=== PATIENT | female | born 1945 | race Two or more races ===

== ENCOUNTER 2020-06-14 03:53 | Emergency (ER) | payer OTHER ==
[~2020-06-14] VITALS: Ht 152.4 cm; Wt 68.2 kg
[~2020-06-14 03:53] MED LIST: NOCURR
[2020-06-14] MEDS ORDERED: SODIUM CHLORIDE 0.9% 1,000 ML IV ONE (04:15)
[2020-06-14] MEDS ORDERED: 0.9% SODIUM CHLORIDE 10 ML SYRINGE IVP PRN (04:15)
[2020-06-14] MEDS ORDERED: MORPHINE SULFATE 2 MG/ML SYRINGE IVP ONE (04:15)
[2020-06-14] MEDS ORDERED: MORPHINE SULFATE 2 MG/ML SYRINGE ONE (04:19)
[2020-06-14] MEDS ORDERED: ONDANSETRON HCL 4 MG/2 ML VIAL ONE (04:19)
[2020-06-14 04:30] LABS: GLUCOSE,POINT OF CARE 163 MG/DL (70-110)
[2020-06-14] MEDS ORDERED: ONDANSETRON HCL 4 MG/2 ML VIAL IVP ONE (04:30)
[2020-06-14 04:46] LABS: BASOPHILS % (AUTO) 0.8 % (0.0-2.0); EOSINOPHILS % (AUTO) 1.3 % (1.0-6.0); HEMATOCRIT 31.9 % (36-46); HEMOGLOBIN 10.4 g/dL (12.0-16.0); LYMPHOCYTES # (AUTO) 1.5 K/uL (1.0-4.8); LYMPHOCYTES % (AUTO) 18.2 % (22.0-44.0); MEAN CORPUSCULAR HEMOGLOBIN 28.5 pg (26.0-34.0); MEAN CORPUSCULAR HGB CONC 32.6 G/dL (31.0-37.0); MEAN CORPUSCULAR VOLUME 88 fL (80-100); MONOCYTES # (AUTO) 0.6 K/uL (0.1-1.0); MONOCYTES % (AUTO) 6.8 % (2.0-9.0); NEUTROPHILS # (AUTO) 6.1 K/uL (1.8-7.7); NEUTROPHILS % (AUTO) 72.9 % (40.0-70.0); PLATELET COUNT (AUTO) 248 K/uL (150-450); RED BLOOD CELL COUNT(AUTO) 3.65 MIL/uL (4.00-5.20); RED CELL DISTRIBUTION WIDTH 13.3 % (11.5-14.5)
[2020-06-14 05:02] LABS: CALCIUM, TOTAL 8.9 mg/dL (8.8-10.5); CREATININE 1.32 mg/dL (0.60-1.30); POTASSIUM 4.9 mmol/L (3.5-5.1)
[2020-06-14 05:18] LABS: ALBUMIN 3.3 g/dL (3.4-5.0); BILIRUBIN,TOTAL 0.5 mg/dL (0.1-1.0); FREE T4 (FREE THYROXINE) 1.48 ng/dL (0.76-1.46); THYROID STIMULATING HORMONE 2.36 uIU/mL (0.36-3.74)
[2020-06-14 05:20] LABS: D-DIMER 0.71 mg/L FEU (0.00-0.50); INR 1.1 (0.9-1.1); PROTHROMBIN TIME 11.2 SEC (9.4-11.6)
[2020-06-14] MEDS ORDERED: FUROSEMIDE 40 MG/4 ML VIAL IVP ONE (06:30)
[2020-06-14] MEDS ORDERED: ASPIRIN 81 MG CHEWABLE TABLET PO ONE (06:30)
[2020-06-14] MEDS ORDERED: NITROGLYCERIN 2% (1 GM=INCH) PACKET TP ONE (06:30)
[2020-06-14 07:37] LABS: APPEARANCE,URINE CLOUDY (CLEAR); BILIRUBIN,URINE NEGATIVE (NEGATIVE); GLUCOSE, URINE (UA) NEGATIVE (NEGATIVE); KETONES,URINE TRACE mg/dL (NEGATIVE); LEUKOCYTE ESTERASE ,URINE MODERATE (NEGATIVE); NITRATE,URINE NEGATIVE (NEGATIVE); OCCULT BLOOD,URINE SMALL (NEGATIVE); PH,URINE 6.5 (5.0-8.0); PROTEIN,URINE SEE CONFIRM (NEGATIVE); UROBILINOGEN,URINE 0.2 mg/dL (<=1.0)
[2020-06-14 07:56] LABS: COVID AG,FIA SOURCE NASOPHARYNGEAL
[2020-06-14] MEDS ORDERED: LETR2.5 PO (08:08)
[2020-06-14] MEDS ORDERED: CAPT25TA3 PO (08:08)
[2020-06-14 08:26] LABS: BACTERIA,URINE Many /HPF (None Seen); WBC,URINE 26-50 /HPF (0-5)
[2020-06-14 08:27] LABS: SULFOSALICYLIC ACID,URINE 2+ (Negative)
[2020-06-14] MEDS ORDERED: CefTRIAXone 1 GM/DEXTROSE 50 ML IV ONE (08:45)
[2020-06-14 11:19] VITALS: BP 159/81
== END 2020-06-14 11:53 | disposition short-term general hospital (02) ==
LOC: EMS 03:54
DX: I50.9 Heart failure, unspecified (principal); I31.3 Pericardial effusion (noninflammatory); N39.0 Urinary tract infection, site not specified; E11.9 Type 2 diabetes mellitus without complications; Z20.822 Contact with and (suspected) exposure to COVID-19
CPT/HCPCS: 36415; 71045; 71250; 74176; 80053; 81001; 82550; 82962; 83605; 83880; 84439; 84443; 84484; 85025; 85379; 85610; 85730; 87040; 87077; 87086; 87186; 87426; 93005; 96361; 96365; 96375; 99291; J0696; J1940; J2270; J2405; J7030; 72192; 74150; 74177; 96366

== ENCOUNTER 2020-12-08 18:56 | Inpatient (IN) | payer MEDICARE, OTHER ==
[~2020-12-08] VITALS: Ht 154.9 cm; Wt 55.7 kg
[~2020-12-08 18:56] MED LIST changes: +CAPT25TA3 PO; +LETR2.5 PO
[2020-12-08 19:19] LABS: BASOPHILS % (AUTO) 0.8 % (0.0-2.0); EOSINOPHILS % (AUTO) 3.4 % (1.0-6.0); HEMATOCRIT 33.9 % (36-46); HEMOGLOBIN 11.2 g/dL (12.0-16.0); LYMPHOCYTES # (AUTO) 2.1 K/uL (1.0-4.8); LYMPHOCYTES % (AUTO) 27.5 % (22.0-44.0); MEAN CORPUSCULAR HEMOGLOBIN 28.4 pg (26.0-34.0); MEAN CORPUSCULAR HGB CONC 32.9 G/dL (31.0-37.0); MEAN CORPUSCULAR VOLUME 86 fL (80-100); MONOCYTES # (AUTO) 0.6 K/uL (0.1-1.0); MONOCYTES % (AUTO) 7.5 % (2.0-9.0); NEUTROPHILS # (AUTO) 4.7 K/uL (1.8-7.7); NEUTROPHILS % (AUTO) 60.8 % (40.0-70.0); PLATELET COUNT (AUTO) 258 K/uL (150-450); RED BLOOD CELL COUNT(AUTO) 3.94 MIL/uL (4.00-5.20); RED CELL DISTRIBUTION WIDTH 14.2 % (11.5-14.5)
[2020-12-08 19:26] LABS: CALCIUM, TOTAL 8.6 mg/dL (8.8-10.5); CREATININE 1.62 mg/dL (0.60-1.30); POTASSIUM 4.1 mmol/L (3.5-5.1)
[2020-12-08 19:32] LABS: ALBUMIN 3.5 g/dL (3.4-5.0); BILIRUBIN,TOTAL 0.3 mg/dL (0.1-1.0); TOTAL PROTEIN, SERUM 7.3 g/dL (6.4-8.2)
[2020-12-08] MEDS ORDERED: MORPHINE SULFATE 2 MG/ML SYRINGE IVP ONE (20:00)
[2020-12-08] MEDS ORDERED: NITROGLYCERIN 2% (1 GM=INCH) PACKET TP ONE (20:00)
[2020-12-08] MEDS ORDERED: ONDANSETRON HCL 4 MG/2 ML VIAL IVP ONE (20:00)
[2020-12-08] MEDS ORDERED: SODIUM CHLORIDE 0.9% 1,000 ML IV ONE (20:45)
[2020-12-08] MEDS ORDERED: 0.9% SODIUM CHLORIDE 10 ML SYRINGE IVP PRN (22:15)
[2020-12-08] MEDS ORDERED: ACETAMINOPHEN 325 MG TABLET PO PRN (22:15)
[2020-12-08] MEDS ORDERED: ONDANSETRON HCL 4 MG/2 ML VIAL IVP PRN (22:15)
[2020-12-08] MEDS ORDERED: SODIUM CHLORIDE 0.9% 100 ML ONE (23:34)
[2020-12-08] MEDS ORDERED: IOHEXOL 350 MG/ML 100 ML VIAL ONE (23:34)
[2020-12-08] MEDS ORDERED: ASPIRIN 325 MG TABLET PO ONE (23:45)
[2020-12-08] MEDS ORDERED: 0.9% SODIUM CHLORIDE 10 ML SYRINGE IVP ONE (23:59)
[2020-12-09 05:25] LABS: BASOPHILS % (AUTO) 0.7 % (0.0-2.0); EOSINOPHILS % (AUTO) 5.4 % (1.0-6.0); HEMATOCRIT 31.1 % (36-46); HEMOGLOBIN 10.4 g/dL (12.0-16.0); LYMPHOCYTES # (AUTO) 2.1 K/uL (1.0-4.8); LYMPHOCYTES % (AUTO) 30.7 % (22.0-44.0); MEAN CORPUSCULAR HEMOGLOBIN 28.8 pg (26.0-34.0); MEAN CORPUSCULAR HGB CONC 33.4 G/dL (31.0-37.0); MEAN CORPUSCULAR VOLUME 86 fL (80-100); MONOCYTES # (AUTO) 0.7 K/uL (0.1-1.0); MONOCYTES % (AUTO) 10.1 % (2.0-9.0); NEUTROPHILS # (AUTO) 3.7 K/uL (1.8-7.7); NEUTROPHILS % (AUTO) 53.1 % (40.0-70.0); PLATELET COUNT (AUTO) 226 K/uL (150-450); RED BLOOD CELL COUNT(AUTO) 3.61 MIL/uL (4.00-5.20); RED CELL DISTRIBUTION WIDTH 14.1 % (11.5-14.5)
[2020-12-09 05:32] LABS: COVID AG,FIA SOURCE NASOPHARYNGEAL
[2020-12-09 05:35] LABS: CALCIUM, TOTAL 7.7 mg/dL (8.8-10.5); CREATININE 1.53 mg/dL (0.60-1.30); POTASSIUM 4.1 mmol/L (3.5-5.1)
[2020-12-09 05:46] LABS: PROTHROMBIN TIME 10.9 SEC (9.4-11.6)
[2020-12-09 09:18] VITALS: BP 161/80
[2020-12-09] MEDS ORDERED: MAGNESIUM HYDROXIDE SUSPENSION 30 ML UDCUP PO PRN (10:15)
[2020-12-09] MEDS ORDERED: MORPHINE SULFATE 2 MG/ML SYRINGE IVP PRN (10:15)
[2020-12-09] MEDS ORDERED: IPRATROPIUM BROMIDE 0.5 MG/2.5 ML NEB SOLUTION NEB PRN (10:15)
[2020-12-09] MEDS ORDERED: ACETAMINOPHEN 325 MG TABLET PO PRN (10:15)
[2020-12-09] MEDS ORDERED: ONDANSETRON HCL 4 MG/2 ML VIAL IVP PRN (10:15)
[2020-12-09] MEDS ORDERED: ALBUTEROL SULFATE 2.5 MG/0.5 ML NEB SOLUTION NEB PRN (10:15)
[2020-12-09] MEDS ORDERED: SODIUM CHLORIDE 0.9% 1,000 ML IV SCH (10:15)
[2020-12-09] MEDS ORDERED: CAPTOPRIL 25 MG TABLET PO SCH (10:15)
[2020-12-09] MEDS ORDERED: DEXTROSE 50%-WATER 25 GM/50 ML SYRINGE IVP PRN (10:15)
[2020-12-09] MEDS ORDERED: HydrALAZINE HCL 20 MG/ML VIAL IVP PRN (10:30)
[2020-12-09 10:58] VITALS: BP 139/73
[2020-12-09] MEDS: LETROZOLE 2.5 MG TABLET PO SCH (11:38)
[2020-12-09] MEDS: INSULIN LISPRO 100 UNITS/ML SQ PRN ×2 (11:57→20:11)
[2020-12-09] MEDS: CARVEDILOL 6.25 MG TABLET PO SCH ×2 (13:42→20:11)
[2020-12-09] MEDS: ASPIRIN 81 MG CHEWABLE TABLET PO SCH (13:42)
[2020-12-09 13:59] LABS: GLUCOMETER DEV NAME(LOC) 5N.1C; GLUCOSE,POINT OF CARE 146 MG/DL (70-110)
[2020-12-09 15:10] VITALS: BP 130/58
[2020-12-09 19:10] VITALS: BP 143/71
[2020-12-09 23:05] VITALS: BP 133/67
[2020-12-10] VITALS (10 sets, daily range): BP systolic 122–148; BP diastolic 51–68
[2020-12-10 01:17] LABS: GLUCOMETER DEV NAME(LOC) 5S.2B; GLUCOSE,POINT OF CARE 185 MG/DL (70-110)
[2020-12-10 01:19] LABS: GLUCOMETER DEV NAME(LOC) 5N.1C; GLUCOSE,POINT OF CARE 128 MG/DL (70-110)
[2020-12-10 06:28] LABS: BASOPHILS % (AUTO) 0.8 % (0.0-2.0); HEMATOCRIT 31.5 % (36-46); HEMOGLOBIN 10.4 g/dL (12.0-16.0); HEMOGLOBIN A1C 7.1 % (3.8-5.6); LYMPHOCYTES # (AUTO) 1.8 K/uL (1.0-4.8); LYMPHOCYTES % (AUTO) 26.6 % (22.0-44.0); MEAN CORPUSCULAR HEMOGLOBIN 28.8 pg (26.0-34.0); MEAN CORPUSCULAR HGB CONC 33.1 G/dL (31.0-37.0); MEAN CORPUSCULAR VOLUME 87 fL (80-100); MONOCYTES # (AUTO) 0.5 K/uL (0.1-1.0); MONOCYTES % (AUTO) 7.8 % (2.0-9.0); NEUTROPHILS # (AUTO) 4.1 K/uL (1.8-7.7); NEUTROPHILS % (AUTO) 58.8 % (40.0-70.0); PLATELET COUNT (AUTO) 222 K/uL (150-450); RED BLOOD CELL COUNT(AUTO) 3.62 MIL/uL (4.00-5.20); RED CELL DISTRIBUTION WIDTH 14.2 % (11.5-14.5)
[2020-12-10 06:39] LABS: ALBUMIN 2.8 g/dL (3.4-5.0); BILIRUBIN,TOTAL 0.2 mg/dL (0.1-1.0); CREATININE 1.46 mg/dL (0.60-1.30); MAGNESIUM 1.9 mg/dL (1.80-2.40); PHOSPHORUS 4.5 mg/dL (2.5-4.9); POTASSIUM 5.2 mmol/L (3.5-5.1); TOTAL PROTEIN, SERUM 6.1 g/dL (6.4-8.2)
[2020-12-10 07:08] LABS: GLUCOMETER DEV NAME(LOC) 5S.2B; GLUCOSE,POINT OF CARE 126 MG/DL (70-110)
[2020-12-10] MEDS: LETROZOLE 2.5 MG TABLET PO SCH (08:28)
[2020-12-10] MEDS: CARVEDILOL 6.25 MG TABLET PO SCH ×2 (08:28→20:23)
[2020-12-10] MEDS: ASPIRIN 81 MG CHEWABLE TABLET PO SCH (08:30)
[2020-12-10] MEDS: INSULIN LISPRO 100 UNITS/ML SQ PRN ×2 (12:44→21:02)
[2020-12-10] MEDS: HEPARIN SODIUM,PORCINE 5,000 UNITS/ML VIAL SQ SCH ×2 (12:45→20:22)
[2020-12-10] MEDS: FUROSEMIDE 20 MG TABLET PO SCH ×2 (13:33→20:23)
[2020-12-10] MEDS: PANTOPRAZOLE SODIUM 40 MG DR TABLET PO SCH (13:33)
[2020-12-10] MEDS ORDERED: SODIUM BICARBONATE 50 MEQ/50 ML VIAL ONE (15:09)
[2020-12-10] MEDS ORDERED: LIDOCAINE/PF 1% 30 ML VIAL ONE (15:09)
[2020-12-10] MEDS ORDERED: IOHEXOL 300 MG/ML 50 ML VIAL ONE (15:09)
[2020-12-10] MEDS ORDERED: HEPARIN SODIUM 1000 UNITS/NS 1,000 ML ONE (15:10)
[2020-12-10] MEDS ORDERED: IOHEXOL 300 MG/ML 150 ML VIAL ONE (15:10)
[2020-12-10] MEDS ORDERED: IOHEXOL 300 MG/ML 100 ML VIAL ONE (15:10)
[2020-12-10] MEDS ORDERED: HEPARIN SODIUM 1000 UNITS/NS 1,000 ML IARTER ONE (16:00)
[2020-12-10] MEDS ORDERED: SODIUM CHLORIDE 0.9% 500 ML IV ONE (16:00)
[2020-12-10] MEDS ORDERED: LIDOCAINE 1% 30 ML/SOD BICARB 8.4% 4 ML SQ ONE (16:00)
[2020-12-10] MEDS ORDERED: IOHEXOL 300 MG/ML 150 ML VIAL IARTER ONE (16:00)
[2020-12-10] MEDS: HYDROCODONE/ACETAMINOPHEN 5-325 MG TABLET PO PRN (20:25)
[2020-12-10 23:16] LABS: GLUCOMETER DEV NAME(LOC) 5S.2B; GLUCOSE,POINT OF CARE 210 MG/DL (70-110)
[2020-12-10 23:16] LABS: GLUCOMETER DEV NAME(LOC) 5S.1; GLUCOSE,POINT OF CARE 196 MG/DL (70-110)
[2020-12-11] MEDS: HYDROCODONE/ACETAMINOPHEN 5-325 MG TABLET PO PRN (00:30)
[2020-12-11 00:50] VITALS: BP 116/58
[2020-12-11 04:23] VITALS: BP 133/61
[2020-12-11 07:20] VITALS: BP 140/61
[2020-12-11 07:51] LABS: GLUCOMETER DEV NAME(LOC) 5S.2B; GLUCOSE,POINT OF CARE 120 MG/DL (70-110)
[2020-12-11] MEDS: LETROZOLE 2.5 MG TABLET PO SCH (08:48)
[2020-12-11] MEDS: ASPIRIN 81 MG CHEWABLE TABLET PO SCH (08:48)
[2020-12-11] MEDS: HEPARIN SODIUM,PORCINE 5,000 UNITS/ML VIAL SQ SCH ×2 (08:49→20:52)
[2020-12-11] MEDS: CARVEDILOL 6.25 MG TABLET PO SCH ×2 (08:49→20:52)
[2020-12-11] MEDS: FUROSEMIDE 20 MG TABLET PO SCH ×2 (08:49→20:52)
[2020-12-11] MEDS: PANTOPRAZOLE SODIUM 40 MG DR TABLET PO SCH (08:49)
[2020-12-11] MEDS ORDERED: LISINOPRIL 10 MG TABLET PO SCH (09:00)
[2020-12-11 11:05] VITALS: BP 124/62
[2020-12-11] MEDS: INSULIN LISPRO 100 UNITS/ML SQ PRN ×2 (12:50→21:06)
[2020-12-11 13:26] LABS: CALCIUM, TOTAL 8.1 mg/dL (8.8-10.5); CREATININE 1.73 mg/dL (0.60-1.30); POTASSIUM 4.8 mmol/L (3.5-5.1)
[2020-12-11 15:50] VITALS: BP 132/60
[2020-12-11 19:20] VITALS: BP 135/63
[2020-12-12] VITALS (7 sets, daily range): BP systolic 123–143; BP diastolic 62–70
[2020-12-12 04:18] LABS: GLUCOMETER DEV NAME(LOC) 5S.1; GLUCOSE,POINT OF CARE 167 MG/DL (70-110)
[2020-12-12 04:18] LABS: GLUCOMETER DEV NAME(LOC) 5S.1; GLUCOSE,POINT OF CARE 93 MG/DL (70-110)
[2020-12-12 04:18] LABS: GLUCOMETER DEV NAME(LOC) 5S.1; GLUCOSE,POINT OF CARE 182 MG/DL (70-110)
[2020-12-12 06:49] LABS: GLUCOMETER DEV NAME(LOC) 5S.1; GLUCOSE,POINT OF CARE 113 MG/DL (70-110)
[2020-12-12 07:55] LABS: CALCIUM, TOTAL 8.6 mg/dL (8.8-10.5); CREATININE 1.7 mg/dL (0.60-1.30); POTASSIUM 4.9 mmol/L (3.5-5.1)
[2020-12-12] MEDS: CARVEDILOL 6.25 MG TABLET PO SCH ×2 (08:06→21:08)
[2020-12-12] MEDS: PANTOPRAZOLE SODIUM 40 MG DR TABLET PO SCH (08:06)
[2020-12-12] MEDS: FUROSEMIDE 20 MG TABLET PO SCH ×3 (08:06→21:08)
[2020-12-12] MEDS: ASPIRIN 81 MG CHEWABLE TABLET PO SCH (08:06)
[2020-12-12] MEDS: LETROZOLE 2.5 MG TABLET PO SCH (08:06)
[2020-12-12] MEDS: HEPARIN SODIUM,PORCINE 5,000 UNITS/ML VIAL SQ SCH ×2 (08:07→21:09)
[2020-12-12] MEDS: INSULIN LISPRO 100 UNITS/ML SQ PRN ×3 (12:12→21:17)
[2020-12-12 13:42] LABS: GLUCOMETER DEV NAME(LOC) 5S.2B; GLUCOSE,POINT OF CARE 166 MG/DL (70-110)
[2020-12-13 00:55] LABS: GLUCOMETER DEV NAME(LOC) 5S.1; GLUCOSE,POINT OF CARE 195 MG/DL (70-110)
[2020-12-13 00:55] LABS: GLUCOMETER DEV NAME(LOC) 5S.1; GLUCOSE,POINT OF CARE 154 MG/DL (70-110)
[2020-12-13 04:35] VITALS: BP 133/69
[2020-12-13 08:30] VITALS: BP 137/58
[2020-12-13] MEDS: ASPIRIN 81 MG CHEWABLE TABLET PO SCH (09:20)
[2020-12-13] MEDS: LETROZOLE 2.5 MG TABLET PO SCH (09:23)
[2020-12-13] MEDS: FUROSEMIDE 20 MG TABLET PO SCH (09:23)
[2020-12-13] MEDS: CARVEDILOL 6.25 MG TABLET PO SCH (09:23)
[2020-12-13] MEDS: PANTOPRAZOLE SODIUM 40 MG DR TABLET PO SCH (09:23)
[2020-12-13] MEDS: HEPARIN SODIUM,PORCINE 5,000 UNITS/ML VIAL SQ SCH (09:24)
[2020-12-13] MEDS: INSULIN LISPRO 100 UNITS/ML SQ PRN (11:16)
[2020-12-13] MEDS ORDERED: CARV3 PO (11:42)
[2020-12-13] MEDS ORDERED: FURO20 PO (11:42)
[2020-12-13] MEDS ORDERED: ASPI-1450 PO (11:42)
[2020-12-13 12:29] VITALS: BP 120/59
[2020-12-13 13:35] VITALS: BP 135/57
[2020-12-13 22:28] LABS: GLUCOMETER DEV NAME(LOC) 5S.2B; GLUCOSE,POINT OF CARE 136 MG/DL (70-110)
[2020-12-14 06:45] LABS: GLUCOMETER DEV NAME(LOC) 5S.1; GLUCOSE,POINT OF CARE 193 MG/DL (70-110)
== END 2020-12-13 13:50 | disposition home or self-care (01) | DRG 286 ==
LOC: EMS 19:23 → 5S 12-09 06:40
PROVIDERS: ADMIT Internal Medicine; ATTEND Internal Medicine
PROC: 4A023N7 Measurement of Cardiac Sampling and Pressure, Left Heart, Percutaneous Approach (ICD-10-PCS; principal; 2020-12-10)
PROC: B2111ZZ Fluoroscopy of Multiple Coronary Arteries using Low Osmolar Contrast (ICD-10-PCS; 2020-12-10)
DX: R07.9 Chest pain, unspecified (principal); I50.21 Acute systolic (congestive) heart failure; I13.0 Hypertensive heart and chronic kidney disease with heart failure and stage 1 through stage 4 chronic kidney disease, or unspecified chronic kidney disease; N17.9 Acute kidney failure, unspecified; J91.8 Pleural effusion in other conditions classified elsewhere; I42.0 Dilated cardiomyopathy; I50.20 Unspecified systolic (congestive) heart failure; E83.51 Hypocalcemia; E11.65 Type 2 diabetes mellitus with hyperglycemia; E11.22 Type 2 diabetes mellitus with diabetic chronic kidney disease; E04.9 Nontoxic goiter, unspecified; I44.7 Left bundle-branch block, unspecified; D64.9 Anemia, unspecified; Z20.822 Contact with and (suspected) exposure to COVID-19; M19.90 Unspecified osteoarthritis, unspecified site; N18.30 Chronic kidney disease, stage 3 unspecified; Z85.3 Personal history of malignant neoplasm of breast; Z86.11 Personal history of tuberculosis; Z90.13 Acquired absence of bilateral breasts and nipples; Z90.49 Acquired absence of other specified parts of digestive tract; Z79.899 Other long term (current) drug therapy
CPT/HCPCS: 70450; 71045; 71260; 72193; 74160; 80048; 80053; 82962; 83036; 83735; 83880; 84100; 84484; 85025; 85610; 85730; 93005; 93306; 97161; 99291; J1644; J2270; J2405; J3490; J7030; J7050; Q9967; 36415-L1; 36415-TC

== ENCOUNTER 2021-03-04 20:46 | Emergency (ER) | payer MEDICARE, OTHER ==
[~2021-03-04] VITALS: Ht 154.9 cm; Wt 54.5 kg
[~2021-03-04 20:46] MED LIST changes: +ASPI-1450 PO; -CAPT25TA3 PO; +CARV3 PO; +FURO20 PO; -NOCURR
[2021-03-04 21:09] LABS: BASOPHILS % (AUTO) 0.5 % (0.0-2.0); HEMATOCRIT 32.1 % (36-46); HEMOGLOBIN 10.9 g/dL (12.0-16.0); LYMPHOCYTES # (AUTO) 2.2 K/uL (1.0-4.8); LYMPHOCYTES % (AUTO) 39.4 % (22.0-44.0); MEAN CORPUSCULAR HEMOGLOBIN 28.9 pg (26.0-34.0); MEAN CORPUSCULAR VOLUME 85 fL (80-100); MONOCYTES # (AUTO) 0.6 K/uL (0.1-1.0); MONOCYTES % (AUTO) 10.7 % (2.0-9.0); NEUTROPHILS # (AUTO) 2.6 K/uL (1.8-7.7); NEUTROPHILS % (AUTO) 47.4 % (40.0-70.0); PLATELET COUNT (AUTO) 248 K/uL (150-450); RED BLOOD CELL COUNT(AUTO) 3.77 MIL/uL (4.00-5.20); RED CELL DISTRIBUTION WIDTH 14.5 % (11.5-14.5)
[2021-03-04 21:14] LABS: COVID AG,FIA SOURCE NASOPHARYNGEAL
[2021-03-04 21:19] LABS: CALCIUM, TOTAL 8.4 mg/dL (8.8-10.5); CREATININE 1.89 mg/dL (0.60-1.30); POTASSIUM 4.1 mmol/L (3.5-5.1)
[2021-03-04 21:23] LABS: ALBUMIN 3.4 g/dL (3.4-5.0); BILIRUBIN,TOTAL 0.3 mg/dL (0.1-1.0); TOTAL PROTEIN, SERUM 7.3 g/dL (6.4-8.2)
[2021-03-04 21:58] VITALS: BP 148/78
== END 2021-03-04 21:59 | disposition home or self-care (01) ==
LOC: EMS 20:46
DX: R07.89 Other chest pain (principal); E11.9 Type 2 diabetes mellitus without complications; Z20.822 Contact with and (suspected) exposure to COVID-19
CPT/HCPCS: 71045; 80053; 84484; 85025; 93005; 99285; 36415-L1; 36415-TC

== ENCOUNTER → 2021-10-03 | Outpatient (CLI) | payer MEDICARE, OTHER | END | disposition home or self-care (01) | LOC: RADPV 12:49 | PROVIDERS: ATTEND Internal Medicine Cardiovascular Disease | DX: I08.3 Combined rheumatic disorders of mitral, aortic and tricuspid valves (principal); I50.9 Heart failure, unspecified; I27.20 Pulmonary hypertension, unspecified | CPT/HCPCS: 93306 ==

== ENCOUNTER 2022-03-11 11:01 | Inpatient (IN) | payer MEDICARE, OTHER ==
[~2022-03-11] VITALS: Ht 157.5 cm; Wt 55.5 kg
[~2022-03-11 11:01] MED LIST changes: +FOLI-130 PO
[2022-03-11 12:26] LABS: BASOPHILS % (AUTO) 0.7 % (0.0-2.0); EOSINOPHILS % (AUTO) 0.8 % (1.0-6.0); HEMATOCRIT 37.1 % (36-46); HEMOGLOBIN 11.7 g/dL (12.0-16.0); MEAN CORPUSCULAR HEMOGLOBIN 24.2 pg (26.0-34.0); MEAN CORPUSCULAR HGB CONC 31.4 G/dL (31.0-37.0); MEAN CORPUSCULAR VOLUME 77 fL (80-100); MONOCYTES # (AUTO) 0.5 K/uL (0.1-1.0); MONOCYTES % (AUTO) 7.4 % (2.0-9.0); NEUTROPHILS # (AUTO) 4.6 K/uL (1.8-7.7); NEUTROPHILS % (AUTO) 74.1 % (40.0-70.0); PLATELET COUNT (AUTO) 224 K/uL (150-450); RED BLOOD CELL COUNT(AUTO) 4.81 MIL/uL (4.00-5.20); RED CELL DISTRIBUTION WIDTH 18.5 % (11.5-14.5)
[2022-03-11 12:32] LABS: CALCIUM, TOTAL 8.8 mg/dL (8.8-10.5); CREATININE 1.32 mg/dL (0.60-1.30); POTASSIUM 4.3 mmol/L (3.5-5.1)
[2022-03-11 12:39] LABS: ALBUMIN 3.2 g/dL (3.4-5.0); BILIRUBIN,TOTAL 0.6 mg/dL (0.1-1.0); INR 1.1 (0.9-1.1); PROTHROMBIN TIME 11.3 SEC (9.4-11.6); TOTAL PROTEIN, SERUM 7.6 g/dL (6.4-8.2)
[2022-03-11 13:05] LABS: APPEARANCE,URINE HAZY (CLEAR); BILIRUBIN,URINE NEGATIVE (NEGATIVE); GLUCOSE, URINE (UA) 70-100 mg/dL (NEGATIVE); LEUKOCYTE ESTERASE ,URINE SMALL (NEGATIVE); NITRATE,URINE NEGATIVE (NEGATIVE); OCCULT BLOOD,URINE SMALL (NEGATIVE); PROTEIN,URINE 300-600,SEE CONFIRM mg/dL (NEGATIVE); SPECIFIC GRAVITIY, URINE 1.021 (1.003-1.030); UROBILINOGEN,URINE <=1.0 mg/dL (<=1.0)
[2022-03-11 13:19] LABS: BACTERIA,URINE Few /HPF (None Seen); SULFOSALICYLIC ACID,URINE 4+ (Negative); YEAST,URINE Few /HPF (None Seen)
[2022-03-11] MEDS ORDERED: FUROSEMIDE 40 MG/4 ML VIAL IVP ONE (13:30)
[2022-03-11 14:10] LABS: COVID AG,FIA SOURCE NASAL SWAB
[2022-03-11] MEDS ORDERED: BISACODYL 10 MG RECTAL RECTAL SUPPOSITORY PR PRN (15:45)
[2022-03-11] MEDS ORDERED: HYDROCODONE/ACETAMINOPHEN 5-325 MG TABLET PO PRN (15:45)
[2022-03-11] MEDS ORDERED: ZOLPIDEM TARTRATE 5 MG TABLET PO PRN (15:45)
[2022-03-11] MEDS ORDERED: MAGNESIUM HYDROXIDE SUSPENSION 30 ML UDCUP PO PRN (15:45)
[2022-03-11] MEDS ORDERED: ONDANSETRON HCL 4 MG/2 ML VIAL IVP PRN (15:45)
[2022-03-11] MEDS: HEPARIN SODIUM,PORCINE 5,000 UNITS/ML VIAL SQ SCH (16:00)
[2022-03-11 16:27] VITALS: BP 140/79
[2022-03-11] MEDS ORDERED: PNEUMOCOCCAL VACCINE POLYVALENT 0.5 ML VIAL [PPSV23] IM. ONE (18:00)
[2022-03-11] MEDS ORDERED: INFLUENZA VIRUS VACCINE QVS 2022-23 (6MO+)/PF 60 MCG/0.5 ML SYRINGE IM. ONE (18:00)
[2022-03-11] MEDS: CARVEDILOL 3.125 MG TABLET PO SCH (20:04)
[2022-03-11] MEDS: DOCUSATE SODIUM 100 MG CAPSULE PO SCH (20:05)
[2022-03-11] MEDS: FUROSEMIDE 20 MG/2 ML VIAL IVP SCH (20:07)
[2022-03-11 20:08] VITALS: BP 140/86
[2022-03-11 20:21] LABS: GLUCOMETER DEV NAME(LOC) 5N.1C; GLUCOSE,POINT OF CARE 222 MG/DL (70-110)
[2022-03-12 00:05] VITALS: BP 131/73
[2022-03-12] MEDS: HEPARIN SODIUM,PORCINE 5,000 UNITS/ML VIAL SQ SCH ×3 (00:55→16:41)
[2022-03-12 05:08] VITALS: BP 121/79
[2022-03-12 06:03] LABS: EOSINOPHILS % (AUTO) 2.1 % (1.0-6.0); HEMOGLOBIN 10.4 g/dL (12.0-16.0); LYMPHOCYTES # (AUTO) 1.2 K/uL (1.0-4.8); LYMPHOCYTES % (AUTO) 24.5 % (22.0-44.0); MEAN CORPUSCULAR HEMOGLOBIN 24.2 pg (26.0-34.0); MEAN CORPUSCULAR HGB CONC 31.6 G/dL (31.0-37.0); MEAN CORPUSCULAR VOLUME 77 fL (80-100); MONOCYTES # (AUTO) 0.4 K/uL (0.1-1.0); MONOCYTES % (AUTO) 9.2 % (2.0-9.0); NEUTROPHILS # (AUTO) 3.1 K/uL (1.8-7.7); NEUTROPHILS % (AUTO) 63.2 % (40.0-70.0); PLATELET COUNT (AUTO) 191 K/uL (150-450); RED BLOOD CELL COUNT(AUTO) 4.32 MIL/uL (4.00-5.20); RED CELL DISTRIBUTION WIDTH 18.2 % (11.5-14.5)
[2022-03-12 06:19] LABS: CALCIUM, TOTAL 8.3 mg/dL (8.8-10.5); CHOL/HDL RATIO 3.5 (3.9-5.7); CREATININE 1.49 mg/dL (0.60-1.30); POTASSIUM 4.6 mmol/L (3.5-5.1)
[2022-03-12 07:23] VITALS: BP 131/71
[2022-03-12] MEDS: FUROSEMIDE 20 MG/2 ML VIAL IVP SCH (08:53)
[2022-03-12] MEDS: PANTOPRAZOLE SODIUM 40 MG DR TABLET PO SCH (08:53)
[2022-03-12] MEDS: ASPIRIN 81 MG CHEWABLE TABLET PO SCH (08:53)
[2022-03-12] MEDS: CARVEDILOL 3.125 MG TABLET PO SCH ×2 (08:53→20:31)
[2022-03-12] MEDS: DOCUSATE SODIUM 100 MG CAPSULE PO SCH ×2 (08:53→20:31)
[2022-03-12 10:45] VITALS: BP 120/77
[2022-03-12 15:18] VITALS: BP 126/76
[2022-03-12 20:06] LABS: GLUCOMETER DEV NAME(LOC) 5S.2B; GLUCOSE,POINT OF CARE 201 MG/DL (70-110)
[2022-03-12 20:07] LABS: GLUCOMETER DEV NAME(LOC) 5S.2B; GLUCOSE,POINT OF CARE 235 MG/DL (70-110)
[2022-03-12 20:11] VITALS: BP 125/76
[2022-03-12 22:31] LABS: GLUCOMETER DEV NAME(LOC) 5S.1B; GLUCOSE,POINT OF CARE 274 MG/DL (70-110)
[2022-03-12] MEDS: ACETAMINOPHEN 325 MG TABLET PO PRN (23:04)
[2022-03-13 00:11] VITALS: BP 117/70
[2022-03-13] MEDS: HEPARIN SODIUM,PORCINE 5,000 UNITS/ML VIAL SQ SCH ×3 (00:13→15:49)
[2022-03-13 04:52] VITALS: BP 126/65
[2022-03-13 06:43] LABS: BASOPHILS % (AUTO) 0.9 % (0.0-2.0); EOSINOPHILS % (AUTO) 2.3 % (1.0-6.0); HEMOGLOBIN 10.8 g/dL (12.0-16.0); LYMPHOCYTES # (AUTO) 1.3 K/uL (1.0-4.8); MEAN CORPUSCULAR HEMOGLOBIN 24.5 pg (26.0-34.0); MEAN CORPUSCULAR HGB CONC 31.6 G/dL (31.0-37.0); MEAN CORPUSCULAR VOLUME 77 fL (80-100); MONOCYTES # (AUTO) 0.5 K/uL (0.1-1.0); MONOCYTES % (AUTO) 9.7 % (2.0-9.0); NEUTROPHILS # (AUTO) 2.8 K/uL (1.8-7.7); NEUTROPHILS % (AUTO) 59.1 % (40.0-70.0); PLATELET COUNT (AUTO) 197 K/uL (150-450); RED CELL DISTRIBUTION WIDTH 18.6 % (11.5-14.5)
[2022-03-13 06:57] LABS: CALCIUM, TOTAL 8.5 mg/dL (8.8-10.5); CREATININE 1.96 mg/dL (0.60-1.30)
[2022-03-13 07:59] VITALS: BP 131/95
[2022-03-13] MEDS ORDERED: FUROSEMIDE 20 MG/2 ML VIAL IVP SCH (08:00)
[2022-03-13] MEDS: ASPIRIN 81 MG CHEWABLE TABLET PO SCH (08:26)
[2022-03-13] MEDS: CARVEDILOL 3.125 MG TABLET PO SCH ×2 (08:27→21:02)
[2022-03-13] MEDS: DOCUSATE SODIUM 100 MG CAPSULE PO SCH ×2 (08:27→21:02)
[2022-03-13] MEDS: PANTOPRAZOLE SODIUM 40 MG DR TABLET PO SCH (08:27)
[2022-03-13 08:36] LABS: GLUCOMETER DEV NAME(LOC) 5S.2B; GLUCOSE,POINT OF CARE 168 MG/DL (70-110)
[2022-03-13 11:04] VITALS: BP 123/71
[2022-03-13] MEDS ORDERED: DEXTROSE 50%-WATER 25 GM/50 ML SYRINGE IVP PRN (11:45)
[2022-03-13] MEDS: INSULIN LISPRO 100 UNITS/ML SQ PRN ×2 (12:54→18:19)
[2022-03-13 15:03] VITALS: BP 119/54
[2022-03-13 18:36] LABS: GLUCOMETER DEV NAME(LOC) 5N.1C; GLUCOSE,POINT OF CARE 164 MG/DL (70-110)
[2022-03-13 20:00] VITALS: BP 122/62
[2022-03-13 21:21] LABS: GLUCOMETER DEV NAME(LOC) 5S.1B; GLUCOSE,POINT OF CARE 198 MG/DL (70-110)
[2022-03-14] VITALS: BP 120/68
[2022-03-14] MEDS: HEPARIN SODIUM,PORCINE 5,000 UNITS/ML VIAL SQ SCH ×3 (00:28→17:08)
[2022-03-14 04:00] VITALS: BP 132/72
[2022-03-14 06:29] LABS: BASOPHILS % (AUTO) 0.8 % (0.0-2.0); EOSINOPHILS % (AUTO) 2.1 % (1.0-6.0); HEMATOCRIT 35.4 % (36-46); LYMPHOCYTES # (AUTO) 1.5 K/uL (1.0-4.8); LYMPHOCYTES % (AUTO) 27.2 % (22.0-44.0); MEAN CORPUSCULAR HEMOGLOBIN 24.1 pg (26.0-34.0); MEAN CORPUSCULAR HGB CONC 31.1 G/dL (31.0-37.0); MEAN CORPUSCULAR VOLUME 77 fL (80-100); MONOCYTES # (AUTO) 0.4 K/uL (0.1-1.0); MONOCYTES % (AUTO) 7.8 % (2.0-9.0); NEUTROPHILS # (AUTO) 3.3 K/uL (1.8-7.7); NEUTROPHILS % (AUTO) 62.1 % (40.0-70.0); PLATELET COUNT (AUTO) 214 K/uL (150-450); RED BLOOD CELL COUNT(AUTO) 4.58 MIL/uL (4.00-5.20); RED CELL DISTRIBUTION WIDTH 18.6 % (11.5-14.5)
[2022-03-14 06:36] LABS: CALCIUM, TOTAL 8.1 mg/dL (8.8-10.5); CREATININE 1.97 mg/dL (0.60-1.30); POTASSIUM 4.9 mmol/L (3.5-5.1)
[2022-03-14 07:44] VITALS: BP 138/76
[2022-03-14 08:31] LABS: GLUCOMETER DEV NAME(LOC) 5S.2B; GLUCOSE,POINT OF CARE 117 MG/DL (70-110)
[2022-03-14] MEDS: CARVEDILOL 3.125 MG TABLET PO SCH ×2 (08:59→20:32)
[2022-03-14] MEDS: DOCUSATE SODIUM 100 MG CAPSULE PO SCH ×2 (09:00→20:31)
[2022-03-14] MEDS: ASPIRIN 81 MG CHEWABLE TABLET PO SCH (09:00)
[2022-03-14] MEDS: PANTOPRAZOLE SODIUM 40 MG DR TABLET PO SCH (09:00)
[2022-03-14 12:20] VITALS: BP 135/76
[2022-03-14 15:02] VITALS: BP 131/55
[2022-03-14 16:50] LABS: SPECIMENTYPE,BODY FLUID PLEURAL
[2022-03-14] MEDS: MORPHINE SULFATE 2 MG/ML SYRINGE IVP PRN ×2 (17:07→20:34)
[2022-03-14 18:14] LABS: APPEARANCE,SPUN,BODY FLUID CLEAR (CLEAR); APPEARANCE,UNSPUN,BODY FLUID HAZY (CLEAR)
[2022-03-14 18:15] LABS: BASOPHILS,BODY FLUID 0 %; COLOR,BODY FLUID LT YELLOW (LT YELLOW); EOSINOPHILS,BF (ANAL) 0 %; LYMPHOCYTES,BODY FLUID 76 %; MONOCYTES,BODY FLUID 3 %; NEUTROPHILS,BODY FLUID 21 %; TOTAL VOLUME,BODY FLUID 850 mL; WBC, BODY FLUID 16 /cu. mm.
[2022-03-14 20:05] VITALS: BP 128/72
[2022-03-14] MEDS: INSULIN LISPRO 100 UNITS/ML SQ PRN (20:33)
[2022-03-14 23:52] LABS: GLUCOMETER DEV NAME(LOC) 5N.1C; GLUCOSE,POINT OF CARE 241 MG/DL (70-110)
[2022-03-14 23:52] LABS: GLUCOMETER DEV NAME(LOC) 5N.1C; GLUCOSE,POINT OF CARE 102 MG/DL (70-110)
[2022-03-15] VITALS (7 sets, daily range): BP systolic 101–127; BP diastolic 49–74
[2022-03-15] MEDS: ACETAMINOPHEN 325 MG TABLET PO PRN ×2 (00:19→20:23)
[2022-03-15] MEDS: HEPARIN SODIUM,PORCINE 5,000 UNITS/ML VIAL SQ SCH ×4 (00:19→23:35)
[2022-03-15 06:01] LABS: BASOPHILS % (AUTO) 0.5 % (0.0-2.0); EOSINOPHILS % (AUTO) 1.9 % (1.0-6.0); HEMATOCRIT 32.3 % (36-46); HEMOGLOBIN 10.2 g/dL (12.0-16.0); LYMPHOCYTES # (AUTO) 1.2 K/uL (1.0-4.8); MEAN CORPUSCULAR HEMOGLOBIN 24.3 pg (26.0-34.0); MEAN CORPUSCULAR HGB CONC 31.7 G/dL (31.0-37.0); MEAN CORPUSCULAR VOLUME 77 fL (80-100); MONOCYTES # (AUTO) 0.6 K/uL (0.1-1.0); MONOCYTES % (AUTO) 9.7 % (2.0-9.0); NEUTROPHILS # (AUTO) 3.8 K/uL (1.8-7.7); NEUTROPHILS % (AUTO) 66.9 % (40.0-70.0); PLATELET COUNT (AUTO) 190 K/uL (150-450); RED BLOOD CELL COUNT(AUTO) 4.22 MIL/uL (4.00-5.20); RED CELL DISTRIBUTION WIDTH 18.7 % (11.5-14.5)
[2022-03-15 06:17] LABS: CREATININE 1.95 mg/dL (0.60-1.30); POTASSIUM 5.3 mmol/L (3.5-5.1)
[2022-03-15] MEDS: INSULIN LISPRO 100 UNITS/ML SQ PRN ×3 (06:47→20:23)
[2022-03-15] MEDS: ASPIRIN 81 MG CHEWABLE TABLET PO SCH (08:44)
[2022-03-15] MEDS: PANTOPRAZOLE SODIUM 40 MG DR TABLET PO SCH (08:44)
[2022-03-15] MEDS: CARVEDILOL 3.125 MG TABLET PO SCH ×2 (08:44→20:23)
[2022-03-15] MEDS: DOCUSATE SODIUM 100 MG CAPSULE PO SCH ×2 (08:44→20:23)
[2022-03-15 12:14] LABS: MAGNESIUM 1.9 mg/dL (1.80-2.40); PHOSPHORUS 4.8 mg/dL (2.5-4.9)
[2022-03-15] MEDS ORDERED: SODIUM POLYSTYRENE SULFONATE 15 GM/60 ML SUSPENSION BOTTLE PO ONE (13:45)
[2022-03-15] MEDS ORDERED: FUROSEMIDE 20 MG TABLET PO SCH (14:00)
[2022-03-15 22:02] LABS: GLUCOMETER DEV NAME(LOC) 5S.2B; GLUCOSE,POINT OF CARE 174 MG/DL (70-110)
[2022-03-15 22:02] LABS: GLUCOMETER DEV NAME(LOC) 5S.2B; GLUCOSE,POINT OF CARE 105 MG/DL (70-110)
[2022-03-15 22:02] LABS: GLUCOMETER DEV NAME(LOC) 5S.2B; GLUCOSE,POINT OF CARE 208 MG/DL (70-110)
[2022-03-16 03:40] VITALS: BP 105/50
[2022-03-16 06:15] LABS: EOSINOPHILS % (AUTO) 2.4 % (1.0-6.0); HEMATOCRIT 31.7 % (36-46); HEMOGLOBIN 10.1 g/dL (12.0-16.0); LYMPHOCYTES # (AUTO) 1.4 K/uL (1.0-4.8); LYMPHOCYTES % (AUTO) 25.6 % (22.0-44.0); MEAN CORPUSCULAR HEMOGLOBIN 24.2 pg (26.0-34.0); MEAN CORPUSCULAR HGB CONC 31.8 G/dL (31.0-37.0); MEAN CORPUSCULAR VOLUME 76 fL (80-100); MONOCYTES # (AUTO) 0.6 K/uL (0.1-1.0); MONOCYTES % (AUTO) 11.3 % (2.0-9.0); NEUTROPHILS # (AUTO) 3.2 K/uL (1.8-7.7); NEUTROPHILS % (AUTO) 59.7 % (40.0-70.0); PLATELET COUNT (AUTO) 193 K/uL (150-450); RED BLOOD CELL COUNT(AUTO) 4.15 MIL/uL (4.00-5.20); RED CELL DISTRIBUTION WIDTH 18.4 % (11.5-14.5)
[2022-03-16 06:24] LABS: CREATININE 1.94 mg/dL (0.60-1.30); POTASSIUM 5.4 mmol/L (3.5-5.1)
[2022-03-16 07:26] VITALS: BP 129/67
[2022-03-16] MEDS ORDERED: CARV3 PO (08:47)
[2022-03-16] MEDS ORDERED: ASPI81 PO (08:47)
[2022-03-16] MEDS ORDERED: FURO20 PO (08:47)
[2022-03-16] MEDS ORDERED: SODIUM POLYSTYRENE SULFONATE 15 GM/60 ML SUSPENSION BOTTLE PO ONE ×2 (09:00→16:15)
[2022-03-16] MEDS: ASPIRIN 81 MG CHEWABLE TABLET PO SCH (09:16)
[2022-03-16] MEDS: PANTOPRAZOLE SODIUM 40 MG DR TABLET PO SCH (09:16)
[2022-03-16] MEDS: DOCUSATE SODIUM 100 MG CAPSULE PO SCH (09:16)
[2022-03-16] MEDS: HEPARIN SODIUM,PORCINE 5,000 UNITS/ML VIAL SQ SCH ×2 (09:17→15:37)
[2022-03-16] MEDS: CARVEDILOL 3.125 MG TABLET PO SCH (09:17)
[2022-03-16 11:49] VITALS: BP 129/69
[2022-03-16] MEDS: INSULIN LISPRO 100 UNITS/ML SQ PRN ×2 (11:56→17:28)
[2022-03-16 15:27] VITALS: BP 113/53
[2022-03-16 19:41] LABS: GLUCOMETER DEV NAME(LOC) 5S.1B; GLUCOSE,POINT OF CARE 219 MG/DL (70-110)
[2022-03-16 20:41] LABS: GLUCOMETER DEV NAME(LOC) 5S.2B; GLUCOSE,POINT OF CARE 147 MG/DL (70-110)
[2022-03-16 20:41] LABS: GLUCOMETER DEV NAME(LOC) 5S.2B; GLUCOSE,POINT OF CARE 115 MG/DL (70-110)
[2022-03-16 20:42] LABS: GLUCOMETER DEV NAME(LOC) 5S.2B; GLUCOSE,POINT OF CARE 196 MG/DL (70-110)
== END 2022-03-16 18:15 | disposition home or self-care (01) | DRG 291 ==
LOC: EMS 11:12 → 5S 15:37
PROVIDERS: ADMIT Internal Medicine; ATTEND Internal Medicine
PROC: 0W993ZZ Drainage of Right Pleural Cavity, Percutaneous Approach (ICD-10-PCS; 2022-03-12)
PROC: 0W9B3ZZ Drainage of Left Pleural Cavity, Percutaneous Approach (ICD-10-PCS; principal; 2022-03-14)
DX: I13.0 Hypertensive heart and chronic kidney disease with heart failure and stage 1 through stage 4 chronic kidney disease, or unspecified chronic kidney disease (principal); E43 Unspecified severe protein-calorie malnutrition; I50.43 Acute on chronic combined systolic (congestive) and diastolic (congestive) heart failure; J18.9 Pneumonia, unspecified organism; J91.8 Pleural effusion in other conditions classified elsewhere; N17.9 Acute kidney failure, unspecified; I42.9 Cardiomyopathy, unspecified; E11.65 Type 2 diabetes mellitus with hyperglycemia; D53.9 Nutritional anemia, unspecified; I34.0 Nonrheumatic mitral (valve) insufficiency; I82.461 Acute embolism and thrombosis of right calf muscular vein; N18.9 Chronic kidney disease, unspecified; Z20.822 Contact with and (suspected) exposure to COVID-19; E11.22 Type 2 diabetes mellitus with diabetic chronic kidney disease; E78.5 Hyperlipidemia, unspecified; E87.5 Hyperkalemia; Z90.13 Acquired absence of bilateral breasts and nipples; Z85.3 Personal history of malignant neoplasm of breast; Z79.4 Long term (current) use of insulin; Z79.82 Long term (current) use of aspirin; Z79.899 Other long term (current) drug therapy; Z68.22 Body mass index [BMI] 22.0-22.9, adult
CPT/HCPCS: 32555; 71045; 76604; 76942; 80048; 80053; 80061; 81001; 81002; 82465; 82550; 82945; 82962; 83036; 83615; 83735; 83880; 83986; 84100; 84132; 84157; 84484; 85025; 85610; 85730; 87015; 87075; 87101; 87205; 87206; 89051; 93005; 93306; 93970; 99285; G0378; J1644; J1940; J2270; 36415-L1; 36415-TC; 87070

== ENCOUNTER 2022-04-06 14:19 | Inpatient (IN) | payer MEDICARE, OTHER ==
[~2022-04-06] VITALS: Ht 152.4 cm; Wt 49.7 kg
[~2022-04-06 14:19] MED LIST changes: -ASPI-1450 PO; +ASPI81 PO
[2022-04-06 14:49] LABS: BASOPHILS % (AUTO) 0.6 % (0.0-2.0); EOSINOPHILS % (AUTO) 1.6 % (1.0-6.0); HEMATOCRIT 36.2 % (36-46); HEMOGLOBIN 11.1 g/dL (12.0-16.0); LYMPHOCYTES # (AUTO) 1.1 K/uL (1.0-4.8); LYMPHOCYTES % (AUTO) 17.4 % (22.0-44.0); MEAN CORPUSCULAR HEMOGLOBIN 23.2 pg (26.0-34.0); MEAN CORPUSCULAR HGB CONC 30.7 G/dL (31.0-37.0); MEAN CORPUSCULAR VOLUME 76 fL (80-100); MONOCYTES # (AUTO) 0.7 K/uL (0.1-1.0); MONOCYTES % (AUTO) 10.9 % (2.0-9.0); NEUTROPHILS # (AUTO) 4.3 K/uL (1.8-7.7); NEUTROPHILS % (AUTO) 69.5 % (40.0-70.0); PLATELET COUNT (AUTO) 278 K/uL (150-450); RED CELL DISTRIBUTION WIDTH 18.6 % (11.5-14.5)
[2022-04-06 14:59] LABS: ANION GAP 7 mmol/L (8-16); CALCIUM, TOTAL 8.2 mg/dL (8.8-10.5); CARBON DIOXIDE 27 mmol/L (22-29); CHLORIDE 99 mmol/L (98-107); CREATININE 1.59 mg/dL (0.60-1.30); GLOMERULAR FILTR. RATE CALC 31 mL/min (>60); GLUCOSE,RANDOM 348 mg/dL (70-110); POTASSIUM 4.8 mmol/L (3.5-5.1); SODIUM SERUM 133 mmol/L (136-145); UREA NITROGEN, BLOOD 25 mg/dL (7-18)
[2022-04-06 15:02] LABS: INR 1.1 (0.9-1.1); PROTHROMBIN TIME 11.6 SEC (9.4-11.6)
[2022-04-06 15:05] LABS: ALANINE AMINOTRANSFERASE 32 U/L (12-78); ALBUMIN 2.6 g/dL (3.4-5.0); ALKALINE PHOSPHATASE 151 U/L (46-116); ASPARTATE AMINOTRANSFERASE 25 U/L (15-37); BILIRUBIN,TOTAL 0.4 mg/dL (0.1-1.0); TOTAL PROTEIN, SERUM 6.8 g/dL (6.4-8.2)
[2022-04-06 15:28] LABS: B-TYPE NATRIURETIC PEPTIDE > 5000 pg/mL (0-100)
[2022-04-06] MEDS ORDERED: FUROSEMIDE 40 MG/4 ML VIAL IVP ONE (15:45)
[2022-04-06 16:53] LABS: COVID AG,FIA SOURCE NASAL SWAB
[2022-04-06] MEDS ORDERED: ACETAMINOPHEN 325 MG TABLET PO PRN (17:30)
[2022-04-06] MEDS ORDERED: DEXTROSE 50%-WATER 25 GM/50 ML SYRINGE IVP PRN (17:45)
[2022-04-06] MEDS: CARVEDILOL 6.25 MG TABLET PO SCH (22:37)
[2022-04-06] MEDS: DOCUSATE SODIUM 100 MG CAPSULE PO SCH (22:37)
[2022-04-06] MEDS: BUMETANIDE 0.25 MG/ML 4 ML VIAL IVP SCH (22:52)
[2022-04-07 06:18] LABS: CALCIUM, TOTAL 7.9 mg/dL (8.8-10.5); CREATININE 1.56 mg/dL (0.60-1.30); POTASSIUM 4.9 mmol/L (3.5-5.1)
[2022-04-07] MEDS: LOSARTAN POTASSIUM 25 MG TABLET PO SCH (08:50)
[2022-04-07] MEDS: FAMOTIDINE 20 MG TABLET PO SCH (08:51)
[2022-04-07] MEDS: ASPIRIN 81 MG CHEWABLE TABLET PO SCH (08:51)
[2022-04-07] MEDS: HEPARIN SODIUM,PORCINE 5,000 UNITS/ML VIAL SQ SCH ×3 (08:53→15:32)
[2022-04-07] MEDS: BUMETANIDE 0.25 MG/ML 4 ML VIAL IVP SCH ×2 (08:55→22:56)
[2022-04-07] MEDS: DOCUSATE SODIUM 100 MG CAPSULE PO SCH ×2 (08:56→20:25)
[2022-04-07] MEDS: CARVEDILOL 6.25 MG TABLET PO SCH ×2 (09:00→20:25)
[2022-04-07 16:32] VITALS: BP 147/93
[2022-04-07] MEDS: INSULIN LISPRO 100 UNITS/ML SQ PRN ×2 (17:05→21:17)
[2022-04-07 19:43] VITALS: BP 116/55
[2022-04-07] MEDS: CeFAZolin 1 GM/DEXTROSE 50 ML IV SCH (22:57)
[2022-04-08 00:06] LABS: GLUCOMETER DEV NAME(LOC) 5S.1B; GLUCOSE,POINT OF CARE 329 MG/DL (70-110)
[2022-04-08] MEDS: HEPARIN SODIUM,PORCINE 5,000 UNITS/ML VIAL SQ SCH ×3 (00:06→15:13)
[2022-04-08 00:16] VITALS: BP 120/57
[2022-04-08 05:29] VITALS: BP 118/65
[2022-04-08] MEDS: CeFAZolin 1 GM/DEXTROSE 50 ML IV SCH ×3 (06:37→21:30)
[2022-04-08 06:56] LABS: GLUCOMETER DEV NAME(LOC) 5S.1B; GLUCOSE,POINT OF CARE 102 MG/DL (70-110)
[2022-04-08 07:58] VITALS: BP 125/60
[2022-04-08] MEDS: BUMETANIDE 0.25 MG/ML 4 ML VIAL IVP SCH ×2 (08:21→20:36)
[2022-04-08] MEDS: DOCUSATE SODIUM 100 MG CAPSULE PO SCH ×2 (08:22→20:36)
[2022-04-08] MEDS: CARVEDILOL 6.25 MG TABLET PO SCH ×2 (08:22→20:36)
[2022-04-08] MEDS: ASPIRIN 81 MG CHEWABLE TABLET PO SCH (08:22)
[2022-04-08] MEDS: FAMOTIDINE 20 MG TABLET PO SCH (08:23)
[2022-04-08] MEDS: LOSARTAN POTASSIUM 25 MG TABLET PO SCH (08:23)
[2022-04-08] MEDS ORDERED: PNEUMOCOCCAL VACCINE POLYVALENT 0.5 ML VIAL [PPSV23] IM. ONE (11:15)
[2022-04-08] MEDS ORDERED: INFLUENZA VIRUS VACCINE QVS 2022-23 (6MO+)/PF 60 MCG/0.5 ML SYRINGE IM. ONE (11:15)
[2022-04-08 11:20] VITALS: BP 122/60
[2022-04-08 11:39] LABS: APPEARANCE,URINE CLEAR (CLEAR); BILIRUBIN,URINE NEGATIVE (NEGATIVE); GLUCOSE, URINE (UA) NEGATIVE (NEGATIVE); KETONES,URINE NEGATIVE (NEGATIVE); LEUKOCYTE ESTERASE ,URINE MODERATE (NEGATIVE); NITRATE,URINE NEGATIVE (NEGATIVE); OCCULT BLOOD,URINE LARGE (NEGATIVE); PH,URINE 6.5 (5.0-8.0); PROTEIN,URINE 30-70 mg/dL (NEGATIVE); UROBILINOGEN,URINE <=1.0 mg/dL (<=1.0)
[2022-04-08 11:48] LABS: BACTERIA,URINE Few /HPF (None Seen); RBC,URINE 26-50 /HPF (0-2); SQUAMOUS EPITHELIAL CELL,UR Few /LPF (None Seen)
[2022-04-08] MEDS: INSULIN LISPRO 100 UNITS/ML SQ PRN ×2 (12:25→17:19)
[2022-04-08 15:44] VITALS: BP 126/62
[2022-04-08] MEDS: GuaiFENesin/CODEINE [SUGAR FREE] 200-20MG/10 ML SYRUP UDCUP PO PRN (17:15)
[2022-04-08 20:00] VITALS: BP 99/43
[2022-04-09] VITALS (7 sets, daily range): BP systolic 106–132; BP diastolic 59–73
[2022-04-09] MEDS: HEPARIN SODIUM,PORCINE 5,000 UNITS/ML VIAL SQ SCH ×3 (00:01→15:19)
[2022-04-09] MEDS: CeFAZolin 1 GM/DEXTROSE 50 ML IV SCH ×3 (05:32→22:36)
[2022-04-09] MEDS: INSULIN LISPRO 100 UNITS/ML SQ PRN ×3 (06:04→17:40)
[2022-04-09 06:30] LABS: BASOPHILS % (AUTO) 1.1 % (0.0-2.0); EOSINOPHILS % (AUTO) 2.9 % (1.0-6.0); HEMATOCRIT 35.8 % (36-46); HEMOGLOBIN 11.3 g/dL (12.0-16.0); LYMPHOCYTES # (AUTO) 1.8 K/uL (1.0-4.8); MEAN CORPUSCULAR HEMOGLOBIN 23.6 pg (26.0-34.0); MEAN CORPUSCULAR HGB CONC 31.4 G/dL (31.0-37.0); MEAN CORPUSCULAR VOLUME 75 fL (80-100); MONOCYTES # (AUTO) 0.7 K/uL (0.1-1.0); NEUTROPHILS # (AUTO) 3.8 K/uL (1.8-7.7); PLATELET COUNT (AUTO) 308 K/uL (150-450); RED BLOOD CELL COUNT(AUTO) 4.78 MIL/uL (4.00-5.20); RED CELL DISTRIBUTION WIDTH 18.3 % (11.5-14.5)
[2022-04-09 06:56] LABS: GLUCOMETER DEV NAME(LOC) 5S.2B; GLUCOSE,POINT OF CARE 141 MG/DL (70-110)
[2022-04-09 06:56] LABS: GLUCOMETER DEV NAME(LOC) 5S.2B; GLUCOSE,POINT OF CARE 251 MG/DL (70-110)
[2022-04-09 06:56] LABS: GLUCOMETER DEV NAME(LOC) 5S.2B; GLUCOSE,POINT OF CARE 100 MG/DL (70-110)
[2022-04-09 07:08] LABS: ALBUMIN 2.1 g/dL (3.4-5.0); BILIRUBIN,TOTAL 0.2 mg/dL (0.1-1.0); CALCIUM, TOTAL 7.8 mg/dL (8.8-10.5); CREATININE 1.55 mg/dL (0.60-1.30); POTASSIUM 4.6 mmol/L (3.5-5.1); TOTAL PROTEIN, SERUM 5.8 g/dL (6.4-8.2)
[2022-04-09] MEDS: GuaiFENesin/CODEINE [SUGAR FREE] 200-20MG/10 ML SYRUP UDCUP PO PRN ×2 (08:59→15:30)
[2022-04-09] MEDS: BUMETANIDE 0.25 MG/ML 4 ML VIAL IVP SCH ×2 (09:01→20:42)
[2022-04-09] MEDS: ASPIRIN 81 MG CHEWABLE TABLET PO SCH (09:01)
[2022-04-09] MEDS: DOCUSATE SODIUM 100 MG CAPSULE PO SCH ×2 (09:02→20:40)
[2022-04-09] MEDS: CARVEDILOL 6.25 MG TABLET PO SCH ×2 (09:02→20:40)
[2022-04-09] MEDS: LOSARTAN POTASSIUM 25 MG TABLET PO SCH (09:02)
[2022-04-09] MEDS: FAMOTIDINE 20 MG TABLET PO SCH (09:02)
[2022-04-09 19:31] LABS: GLUCOMETER DEV NAME(LOC) 5S.1B; GLUCOSE,POINT OF CARE 154 MG/DL (70-110)
[2022-04-09 19:31] LABS: GLUCOMETER DEV NAME(LOC) 5S.1B; GLUCOSE,POINT OF CARE 174 MG/DL (70-110)
[2022-04-09 19:31] LABS: GLUCOMETER DEV NAME(LOC) 5S.1B; GLUCOSE,POINT OF CARE 222 MG/DL (70-110)
[2022-04-09] MEDS: ONDANSETRON HCL 4 MG/2 ML VIAL IVP PRN (20:39)
[2022-04-09] MEDS ORDERED: SODIUM CHLORIDE 0.9% 250 ML IV ONE (22:36)
[2022-04-10] MEDS: GuaiFENesin/CODEINE [SUGAR FREE] 200-20MG/10 ML SYRUP UDCUP PO PRN (00:06)
[2022-04-10] MEDS: HEPARIN SODIUM,PORCINE 5,000 UNITS/ML VIAL SQ SCH ×3 (00:06→15:21)
[2022-04-10 05:53] VITALS: BP 112/67
[2022-04-10] MEDS: CeFAZolin 1 GM/DEXTROSE 50 ML IV SCH ×3 (06:12→21:02)
[2022-04-10 06:26] LABS: GLUCOMETER DEV NAME(LOC) 5S.2B; GLUCOSE,POINT OF CARE 115 MG/DL (70-110)
[2022-04-10] MEDS: INSULIN LISPRO 100 UNITS/ML SQ PRN ×2 (06:49→21:07)
[2022-04-10] MEDS: FAMOTIDINE 20 MG TABLET PO SCH ×2 (08:35→20:52)
[2022-04-10] MEDS: BUMETANIDE 0.25 MG/ML 4 ML VIAL IVP SCH ×2 (08:37→20:52)
[2022-04-10] MEDS: LOSARTAN POTASSIUM 25 MG TABLET PO SCH (08:37)
[2022-04-10] MEDS: CARVEDILOL 6.25 MG TABLET PO SCH ×2 (08:37→20:53)
[2022-04-10 08:38] VITALS: BP 132/92
[2022-04-10] MEDS: ASPIRIN 81 MG CHEWABLE TABLET PO SCH (08:38)
[2022-04-10] MEDS: ONDANSETRON HCL 4 MG/2 ML VIAL IVP PRN ×2 (08:39→16:24)
[2022-04-10] MEDS: DOCUSATE SODIUM 100 MG CAPSULE PO SCH ×2 (09:00→20:53)
[2022-04-10 11:26] VITALS: BP 113/59
[2022-04-10 12:21] LABS: GLUCOMETER DEV NAME(LOC) 5S.1B; GLUCOSE,POINT OF CARE 169 MG/DL (70-110)
[2022-04-10 15:42] LABS: SPECIMENTYPE,BODY FLUID PLEURAL
[2022-04-10 16:07] VITALS: BP 134/41
[2022-04-10 16:20] VITALS: BP 142/73
[2022-04-10 18:24] LABS: APPEARANCE,SPUN,BODY FLUID CLEAR (CLEAR); APPEARANCE,UNSPUN,BODY FLUID CLOUDY (CLEAR)
[2022-04-10 18:25] LABS: BASOPHILS,BODY FLUID 0 %; COLOR,BODY FLUID RED (LT YELLOW); EOSINOPHILS,BF (ANAL) 0 %; LYMPHOCYTES,BODY FLUID 20 %; MONOCYTES,BODY FLUID 4 %; NEUTROPHILS,BODY FLUID 76 %; PH, BODY FLUID 8; TOTAL VOLUME,BODY FLUID 50 mL; WBC, BODY FLUID 50 /cu. mm.
[2022-04-10 21:21] VITALS: BP 144/73
[2022-04-11 00:32] VITALS: BP 135/70
[2022-04-11 04:57] VITALS: BP 127/61
[2022-04-11 05:16] LABS: GLUCOMETER DEV NAME(LOC) 5S.2B; GLUCOSE,POINT OF CARE 156 MG/DL (70-110)
[2022-04-11] MEDS: CeFAZolin 1 GM/DEXTROSE 50 ML IV SCH ×3 (05:33→21:51)
[2022-04-11] MEDS: INSULIN LISPRO 100 UNITS/ML SQ PRN ×3 (05:41→21:50)
[2022-04-11] MEDS: ONDANSETRON HCL 4 MG/2 ML VIAL IVP PRN ×2 (05:47→08:17)
[2022-04-11 06:51] LABS: GLUCOMETER DEV NAME(LOC) 5S.2B; GLUCOSE,POINT OF CARE 151 MG/DL (70-110)
[2022-04-11] MEDS: HEPARIN SODIUM,PORCINE 5,000 UNITS/ML VIAL SQ SCH ×3 (08:17→16:02)
[2022-04-11] MEDS: BUMETANIDE 0.25 MG/ML 4 ML VIAL IVP SCH ×2 (08:17→21:55)
[2022-04-11] MEDS: FAMOTIDINE 20 MG TABLET PO SCH ×2 (08:18→21:51)
[2022-04-11] MEDS: DOCUSATE SODIUM 100 MG CAPSULE PO SCH ×2 (08:18→21:51)
[2022-04-11] MEDS: CARVEDILOL 6.25 MG TABLET PO SCH ×2 (08:18→21:51)
[2022-04-11] MEDS: LOSARTAN POTASSIUM 25 MG TABLET PO SCH (08:18)
[2022-04-11 09:00] VITALS: BP 113/52
[2022-04-11] MEDS: ASPIRIN 81 MG CHEWABLE TABLET PO SCH (11:39)
[2022-04-11 12:00] VITALS: BP 101/47
[2022-04-11 15:26] LABS: GLUCOMETER DEV NAME(LOC) 5S.2B; GLUCOSE,POINT OF CARE 217 MG/DL (70-110)
[2022-04-11 16:00] VITALS: BP 110/62
[2022-04-11 19:49] VITALS: BP 111/65
[2022-04-11 20:41] LABS: GLUCOMETER DEV NAME(LOC) 5N.1C; GLUCOSE,POINT OF CARE 218 MG/DL (70-110)
[2022-04-12] MEDS: HEPARIN SODIUM,PORCINE 5,000 UNITS/ML VIAL SQ SCH ×4 (01:06→23:08)
[2022-04-12] MEDS: CeFAZolin 1 GM/DEXTROSE 50 ML IV SCH ×2 (05:10→14:14)
[2022-04-12 05:19] VITALS: BP 133/88
[2022-04-12 05:46] LABS: GLUCOMETER DEV NAME(LOC) 5N.1C; GLUCOSE,POINT OF CARE 91 MG/DL (70-110)
[2022-04-12] MEDS ORDERED: SODIUM CHLORIDE 0.9% 1,000 ML ONE ×2 (06:18→06:23)
[2022-04-12 06:26] LABS: GLUCOMETER DEV NAME(LOC) 5S.2B; GLUCOSE,POINT OF CARE 128 MG/DL (70-110)
[2022-04-12] MEDS ORDERED: PHENYLEPHRINE 200 MG/D5%-WATER 250 ML IV PRN (06:45)
[2022-04-12] MEDS ORDERED: BUPIVACAINE HCL/PF 0.25% 30 ML VIAL ONE (06:57)
[2022-04-12 07:43] LABS: ABG BASE EXCESS 11.4 mmol/L (-2.0-3.0); ABG CARBOXYHEMOGLOBIN 1.1 % (0.0-1.5); ABG HCO3 33.4 mmol/L (22.0-26.0); ABG METHEMOGLOBIN 0.3 % (0.0-1.5); ABG OXYGEN CONTENT 16.5 mL/dL (15.0-23.0); ABG OXYGEN SATURATION 95.4 % (95.0-98.0); ABG OXYHEMOGLOBIN 94.1 % (94.0-100.0); ABG PCO2 55 mmHg (35-45); ABG PH 7.429 (7.35-7.450); ABG TOTAL HEMOGLOBIN 12.4 G/dL (12.0-18.0); PO2, ARTERIAL BG 74.8 mmHg (75.0-83.0); SOURCE, BLOOD GAS ARTERIAL; TEMPERATURE, FAHRENHEIT, BG 98.6 FAHREN (96.0-98.6)
[2022-04-12 07:44] LABS: ABG A-A DIFF O2 8.8 mmHg (10-20.0); SITE, BLOOD GAS ALINE
[2022-04-12] MEDS ORDERED: SODIUM CHLORIDE 0.9% IV ONE (08:15)
[2022-04-12] MEDS ORDERED: DOXYCYCLINE HYCLATE IV ONE (08:15)
[2022-04-12] MEDS ORDERED: FentaNYL CITRATE PF 100 MCG/2 ML VIAL ONE (08:57)
[2022-04-12] MEDS: CARVEDILOL 6.25 MG TABLET PO SCH ×2 (09:00→20:12)
[2022-04-12] MEDS: BUMETANIDE 0.25 MG/ML 4 ML VIAL IVP SCH ×2 (09:00→20:11)
[2022-04-12] MEDS: DOCUSATE SODIUM 100 MG CAPSULE PO SCH ×2 (09:00→20:11)
[2022-04-12] MEDS ORDERED: HYDROmorphone HCL 2 MG/ML SYRINGE IVP PRN (09:00)
[2022-04-12] MEDS ORDERED: MEPERIDINE-PF 25 MG/ML VIAL IVP PRN (09:00)
[2022-04-12] MEDS: FAMOTIDINE 20 MG TABLET PO SCH ×2 (09:00→20:11)
[2022-04-12] MEDS: ASPIRIN 81 MG CHEWABLE TABLET PO SCH (09:00)
[2022-04-12] MEDS: LOSARTAN POTASSIUM 25 MG TABLET PO SCH (09:00)
[2022-04-12] MEDS: FentaNYL CITRATE PF 100 MCG/2 ML VIAL IVP PRN ×2 (09:39→09:40)
[2022-04-12] MEDS ORDERED: ONDANSETRON HCL 4 MG/2 ML VIAL ONE (10:12)
[2022-04-12] MEDS: ONDANSETRON HCL 4 MG/2 ML VIAL IVP PRN (10:13)
[2022-04-12] MEDS ORDERED: DEXAMETHASONE SOD PHOS 4 MG/ML VIAL IVP ONE ×2 (11:30→12:00)
[2022-04-12 12:00] VITALS: BP 145/48
[2022-04-12] MEDS ORDERED: ONDANSETRON HCL 4 MG/2 ML VIAL IVP ONE (12:00)
[2022-04-12] MEDS ORDERED: PHENYLEPHRINE HCL 10 MG/ML VIAL IVP ONE (12:00)
[2022-04-12] MEDS ORDERED: FentaNYL CITRATE PF 100 MCG/2 ML VIAL IVP ONE (12:00)
[2022-04-12] MEDS ORDERED: GLYCOPYRROLATE 0.2 MG/ML VIAL IM ONE (12:00)
[2022-04-12] MEDS ORDERED: MORPHINE SULFATE 4 MG/ML SYRINGE IVP ONE (12:00)
[2022-04-12] MEDS ORDERED: LIDOCAINE/PF 2% 5 ML VIAL IM ONE (12:00)
[2022-04-12] MEDS ORDERED: ROCURONIUM BROMIDE 10 MG/ML 5 ML VIAL IVP ONE (12:00)
[2022-04-12] MEDS: INSULIN LISPRO 100 UNITS/ML SQ PRN ×3 (13:08→21:17)
[2022-04-12] MEDS ORDERED: VANCOMYCIN HCL 1 GM in DEXTROSE 5%-WATER 250 ML IV ONE (15:00)
[2022-04-12] MEDS ORDERED: VANCOMYCIN HCL 1 GM/D5% WATER 200 ML IV PRN (15:15)
[2022-04-12 16:00] VITALS: BP 134/52
[2022-04-12 17:32] LABS: GLUCOSE,POINT OF CARE 193 MG/DL (70-110)
[2022-04-12] MEDS: HYDROCODONE/ACETAMINOPHEN 5-325 MG TABLET PO PRN (17:52)
[2022-04-12 17:53] VITALS: BP 152/60
[2022-04-12 19:25] LABS: GLUCOSE,POINT OF CARE 201 MG/DL (70-110)
[2022-04-12 20:00] VITALS: BP 135/44
[2022-04-12] MEDS: OXYGEN THERAPY IH SCH (20:30)
[2022-04-13] VITALS: BP 142/55
[2022-04-13 01:01] LABS: GLUCOSE,POINT OF CARE 223 MG/DL (70-110)
[2022-04-13 04:00] VITALS: BP 146/64
[2022-04-13 05:42] LABS: CALCIUM, TOTAL 8.2 mg/dL (8.8-10.5); CREATININE 1.54 mg/dL (0.60-1.30); POTASSIUM 4.6 mmol/L (3.5-5.1)
[2022-04-13 06:22] LABS: BASOPHILS % (AUTO) 0.6 % (0.0-2.0); EOSINOPHILS % (AUTO) 0.2 % (1.0-6.0); HEMATOCRIT 35.1 % (36-46); HEMOGLOBIN 10.8 g/dL (12.0-16.0); LYMPHOCYTES % (AUTO) 9.6 % (22.0-44.0); MEAN CORPUSCULAR HEMOGLOBIN 23.3 pg (26.0-34.0); MEAN CORPUSCULAR HGB CONC 30.9 G/dL (31.0-37.0); MEAN CORPUSCULAR VOLUME 76 fL (80-100); MONOCYTES # (AUTO) 0.8 K/uL (0.1-1.0); NEUTROPHILS # (AUTO) 8.3 K/uL (1.8-7.7); NEUTROPHILS % (AUTO) 81.6 % (40.0-70.0); PLATELET COUNT (AUTO) 242 K/uL (150-450); RED BLOOD CELL COUNT(AUTO) 4.65 MIL/uL (4.00-5.20); RED CELL DISTRIBUTION WIDTH 18.4 % (11.5-14.5)
[2022-04-13 06:31] LABS: GLUCOSE,POINT OF CARE 104 MG/DL (70-110)
[2022-04-13 08:00] VITALS: BP 123/39
[2022-04-13] MEDS: OXYGEN THERAPY IH SCH ×2 (09:09→20:00)
[2022-04-13] MEDS: BUMETANIDE 0.25 MG/ML 4 ML VIAL IVP SCH ×2 (09:09→20:23)
[2022-04-13] MEDS: HEPARIN SODIUM,PORCINE 5,000 UNITS/ML VIAL SQ SCH ×3 (09:09→23:42)
[2022-04-13] MEDS: LOSARTAN POTASSIUM 25 MG TABLET PO SCH (09:10)
[2022-04-13] MEDS: FAMOTIDINE 20 MG TABLET PO SCH ×2 (09:10→20:22)
[2022-04-13] MEDS: ASPIRIN 81 MG CHEWABLE TABLET PO SCH (09:10)
[2022-04-13] MEDS: DOCUSATE SODIUM 100 MG CAPSULE PO SCH ×2 (09:10→20:23)
[2022-04-13] MEDS: CARVEDILOL 6.25 MG TABLET PO SCH ×2 (09:10→20:23)
[2022-04-13 12:00] VITALS: BP 152/58
[2022-04-13 16:00] VITALS: BP 128/45
[2022-04-13] MEDS: HYDROCODONE/ACETAMINOPHEN 5-325 MG TABLET PO PRN ×2 (16:46→23:42)
[2022-04-13] MEDS: ONDANSETRON HCL 4 MG/2 ML VIAL IVP PRN (17:32)
[2022-04-13 20:00] VITALS: BP 121/50
[2022-04-13] MEDS: SACUBITRIL/VALSARTAN 24-26 MG TABLET PO SCH (20:22)
[2022-04-13] MEDS: HYDROmorphone HCL 2 MG/ML SYRINGE IVP PRN (20:23)
[2022-04-13 20:51] LABS: GLUCOSE,POINT OF CARE 134 MG/DL (70-110)
[2022-04-13 20:51] LABS: GLUCOSE,POINT OF CARE 113 MG/DL (70-110)
[2022-04-13 21:50] LABS: GLUCOSE,POINT OF CARE 119 MG/DL (70-110)
[2022-04-14] VITALS (9 sets, daily range): BP systolic 93–121; BP diastolic 40–58
[2022-04-14 06:32] LABS: CALCIUM, TOTAL 8.3 mg/dL (8.8-10.5); CREATININE 1.8 mg/dL (0.60-1.30); POTASSIUM 4.9 mmol/L (3.5-5.1); VANCOMYCIN,RANDOM 10.4 mcg/mL (25.0-50.0)
[2022-04-14] MEDS ORDERED: VANCOMYCIN 1GM/WATER(PEG/NADA) 200 ML IV PRN (08:00)
[2022-04-14] MEDS ORDERED: VANCOMYCIN 1GM/WATER(PEG/NADA) 200 ML IV ONE (08:00)
[2022-04-14] MEDS: FAMOTIDINE 20 MG TABLET PO SCH ×2 (08:01→20:34)
[2022-04-14] MEDS: SACUBITRIL/VALSARTAN 24-26 MG TABLET PO SCH ×2 (08:01→21:23)
[2022-04-14] MEDS: ASPIRIN 81 MG CHEWABLE TABLET PO SCH (08:02)
[2022-04-14] MEDS: DOCUSATE SODIUM 100 MG CAPSULE PO SCH ×2 (08:02→20:34)
[2022-04-14] MEDS: BUMETANIDE 0.25 MG/ML 4 ML VIAL IVP SCH (08:02)
[2022-04-14] MEDS: HEPARIN SODIUM,PORCINE 5,000 UNITS/ML VIAL SQ SCH ×2 (08:02→16:24)
[2022-04-14] MEDS: OXYGEN THERAPY IH SCH ×2 (08:38→20:20)
[2022-04-14] MEDS: CARVEDILOL 6.25 MG TABLET PO SCH ×2 (09:00→20:34)
[2022-04-14] MEDS ORDERED: SODIUM CHLORIDE 0.9% 250 ML IV ONE (09:07)
[2022-04-14 09:11] LABS: GLUCOSE,POINT OF CARE 89 MG/DL (70-110)
[2022-04-14 09:14] LABS: BASOPHILS % (AUTO) 0.7 % (0.0-2.0); EOSINOPHILS % (AUTO) 3.9 % (1.0-6.0); HEMATOCRIT 34.3 % (36-46); HEMOGLOBIN 10.4 g/dL (12.0-16.0); LYMPHOCYTES # (AUTO) 1.4 K/uL (1.0-4.8); LYMPHOCYTES % (AUTO) 18.9 % (22.0-44.0); MEAN CORPUSCULAR HEMOGLOBIN 23.2 pg (26.0-34.0); MEAN CORPUSCULAR HGB CONC 30.4 G/dL (31.0-37.0); MEAN CORPUSCULAR VOLUME 76 fL (80-100); MONOCYTES % (AUTO) 13.3 % (2.0-9.0); NEUTROPHILS # (AUTO) 4.7 K/uL (1.8-7.7); NEUTROPHILS % (AUTO) 63.2 % (40.0-70.0); PLATELET COUNT (AUTO) 201 K/uL (150-450); RED BLOOD CELL COUNT(AUTO) 4.51 MIL/uL (4.00-5.20); RED CELL DISTRIBUTION WIDTH 18.3 % (11.5-14.5)
[2022-04-14] MEDS: INSULIN LISPRO 100 UNITS/ML SQ PRN (13:52)
[2022-04-14 16:46] LABS: GLUCOMETER DEV NAME(LOC) 5N.1C; GLUCOSE,POINT OF CARE 253 MG/DL (70-110)
[2022-04-14] MEDS: FUROSEMIDE 20 MG TABLET PO SCH (20:34)
[2022-04-14] MEDS: HYDROCODONE/ACETAMINOPHEN 5-325 MG TABLET PO PRN (20:34)
[2022-04-15] MEDS: HEPARIN SODIUM,PORCINE 5,000 UNITS/ML VIAL SQ SCH ×3 (00:49→16:37)
[2022-04-15 04:02] VITALS: BP 107/56
[2022-04-15 06:07] LABS: CALCIUM, TOTAL 7.5 mg/dL (8.8-10.5); CREATININE 1.79 mg/dL (0.60-1.30); POTASSIUM 4.6 mmol/L (3.5-5.1)
[2022-04-15 07:31] VITALS: BP 123/64
[2022-04-15] MEDS: OXYGEN THERAPY IH SCH ×2 (08:00→20:01)
[2022-04-15 08:02] LABS: GLUCOMETER DEV NAME(LOC) 5N.1C; GLUCOSE,POINT OF CARE 106 MG/DL (70-110)
[2022-04-15 08:02] LABS: GLUCOMETER DEV NAME(LOC) 5N.1C; GLUCOSE,POINT OF CARE 120 MG/DL (70-110)
[2022-04-15 08:27] LABS: GLUCOMETER DEV NAME(LOC) 5S.2B; GLUCOSE,POINT OF CARE 138 MG/DL (70-110)
[2022-04-15] MEDS: ASPIRIN 81 MG CHEWABLE TABLET PO SCH (08:29)
[2022-04-15] MEDS: FAMOTIDINE 20 MG TABLET PO SCH ×2 (08:32→20:08)
[2022-04-15] MEDS: CARVEDILOL 6.25 MG TABLET PO SCH ×2 (08:32→20:08)
[2022-04-15] MEDS: FUROSEMIDE 20 MG TABLET PO SCH ×2 (08:32→20:08)
[2022-04-15] MEDS: DOCUSATE SODIUM 100 MG CAPSULE PO SCH ×2 (08:33→20:08)
[2022-04-15] MEDS: SACUBITRIL/VALSARTAN 24-26 MG TABLET PO SCH ×2 (08:34→20:08)
[2022-04-15] MEDS: VANCOMYCIN HCL 500 MG in DEXTROSE 5%-WATER 100 ML IV SCH (08:48)
[2022-04-15 11:19] VITALS: BP 108/45
[2022-04-15] MEDS: INSULIN LISPRO 100 UNITS/ML SQ PRN ×2 (11:40→17:26)
[2022-04-15 15:23] VITALS: BP 116/56
[2022-04-15 17:41] LABS: GLUCOMETER DEV NAME(LOC) 5N.1C; GLUCOSE,POINT OF CARE 203 MG/DL (70-110)
[2022-04-15 17:46] LABS: GLUCOMETER DEV NAME(LOC) 5S.2B; GLUCOSE,POINT OF CARE 145 MG/DL (70-110)
[2022-04-15 19:37] VITALS: BP 109/61
[2022-04-15 19:56] LABS: GLUCOMETER DEV NAME(LOC) 5N.1C; GLUCOSE,POINT OF CARE 68 MG/DL (70-110)
[2022-04-16 00:17] VITALS: BP 104/47
[2022-04-16] MEDS: HEPARIN SODIUM,PORCINE 5,000 UNITS/ML VIAL SQ SCH ×3 (00:37→16:03)
[2022-04-16 05:02] VITALS: BP 97/61
[2022-04-16 05:31] LABS: GLUCOMETER DEV NAME(LOC) 5S.2B; GLUCOSE,POINT OF CARE 131 MG/DL (70-110)
[2022-04-16 07:08] LABS: CREATININE 1.69 mg/dL (0.60-1.30); POTASSIUM 4.8 mmol/L (3.5-5.1)
[2022-04-16] MEDS: OXYGEN THERAPY IH SCH ×2 (08:00→20:00)
[2022-04-16 09:00] VITALS: BP 123/57
[2022-04-16] MEDS: FUROSEMIDE 20 MG TABLET PO SCH ×2 (09:08→21:04)
[2022-04-16] MEDS: DOCUSATE SODIUM 100 MG CAPSULE PO SCH ×2 (09:08→21:03)
[2022-04-16] MEDS: CARVEDILOL 6.25 MG TABLET PO SCH ×2 (09:08→21:00)
[2022-04-16] MEDS: ASPIRIN 81 MG CHEWABLE TABLET PO SCH (09:08)
[2022-04-16] MEDS: FAMOTIDINE 20 MG TABLET PO SCH ×2 (09:08→21:03)
[2022-04-16] MEDS: SACUBITRIL/VALSARTAN 24-26 MG TABLET PO SCH ×2 (09:08→21:03)
[2022-04-16] MEDS: VANCOMYCIN HCL 500 MG in DEXTROSE 5%-WATER 100 ML IV SCH (09:09)
[2022-04-16] MEDS: HYDROmorphone HCL 2 MG/ML SYRINGE IVP PRN (09:12)
[2022-04-16] MEDS: HYDROCODONE/ACETAMINOPHEN 5-325 MG TABLET PO PRN (10:33)
[2022-04-16] MEDS: INSULIN LISPRO 100 UNITS/ML SQ PRN ×3 (12:05→21:05)
[2022-04-16 13:00] VITALS: BP 90/48
[2022-04-16 16:00] VITALS: BP 111/76
[2022-04-16 20:00] VITALS: BP 115/57
[2022-04-16 20:51] LABS: GLUCOMETER DEV NAME(LOC) 5N.1C; GLUCOSE,POINT OF CARE 243 MG/DL (70-110)
[2022-04-16] MEDS: GuaiFENesin/CODEINE [SUGAR FREE] 200-20MG/10 ML SYRUP UDCUP PO PRN (21:04)
[2022-04-17] MEDS: HEPARIN SODIUM,PORCINE 5,000 UNITS/ML VIAL SQ SCH ×2 (00:45→08:52)
[2022-04-17 05:59] VITALS: BP 110/49
[2022-04-17] MEDS: GuaiFENesin/CODEINE [SUGAR FREE] 200-20MG/10 ML SYRUP UDCUP PO PRN (06:05)
[2022-04-17 06:11] LABS: GLUCOMETER DEV NAME(LOC) 5N.1C; GLUCOSE,POINT OF CARE 92 MG/DL (70-110)
[2022-04-17 07:04] LABS: CALCIUM, TOTAL 8.3 mg/dL (8.8-10.5); CREATININE 1.77 mg/dL (0.60-1.30); POTASSIUM 5.2 mmol/L (3.5-5.1); VANCOMYCIN,RANDOM 19.8 mcg/mL (25.0-50.0)
[2022-04-17 08:00] VITALS: BP 111/52
[2022-04-17] MEDS: OXYGEN THERAPY IH SCH (08:00)
[2022-04-17] MEDS: VANCOMYCIN HCL 500 MG in DEXTROSE 5%-WATER 100 ML IV SCH (08:51)
[2022-04-17] MEDS: FUROSEMIDE 20 MG TABLET PO SCH (08:52)
[2022-04-17] MEDS: SACUBITRIL/VALSARTAN 24-26 MG TABLET PO SCH (08:52)
[2022-04-17] MEDS: CARVEDILOL 6.25 MG TABLET PO SCH (08:52)
[2022-04-17] MEDS: ASPIRIN 81 MG CHEWABLE TABLET PO SCH (08:52)
[2022-04-17] MEDS: DOCUSATE SODIUM 100 MG CAPSULE PO SCH (08:52)
[2022-04-17] MEDS: FAMOTIDINE 20 MG TABLET PO SCH (08:52)
[2022-04-17 11:10] VITALS: BP 100/56
[2022-04-17] MEDS: INSULIN LISPRO 100 UNITS/ML SQ PRN (12:08)
[2022-04-17] MEDS ORDERED: SACU1TAB PO (12:13)
[2022-04-17] MEDS ORDERED: ASPI81 PO (12:13)
[2022-04-17] MEDS ORDERED: CARV6 PO (12:13)
[2022-04-17] MEDS ORDERED: FURO20 PO (12:13)
[2022-04-17] MEDS ORDERED: CLIN300C58 PO (12:22)
[2022-04-17 13:06] LABS: GLUCOMETER DEV NAME(LOC) 5N.1C; GLUCOSE,POINT OF CARE 209 MG/DL (70-110)
== END 2022-04-17 14:50 | disposition home or self-care (01) | DRG 264 ==
LOC: EMS 14:46 → 5S 04-07 15:08 → ICU 04-12 10:55 → 5S 04-14 08:30
PROVIDERS: ADMIT Internal Medicine; ATTEND Internal Medicine
PROC: 0W9B3ZZ Drainage of Left Pleural Cavity, Percutaneous Approach (ICD-10-PCS; 2022-04-10)
PROC: 0B5P4ZZ Destruction of Left Pleura, Percutaneous Endoscopic Approach (ICD-10-PCS; 2022-04-12)
PROC: 3E0L4GC Introduction of Other Therapeutic Substance into Pleural Cavity, Percutaneous Endoscopic Approach (ICD-10-PCS; 2022-04-12)
PROC: 0BBP4ZX Excision of Left Pleura, Percutaneous Endoscopic Approach, Diagnostic (ICD-10-PCS; principal; 2022-04-12 07:35)
DX: I13.0 Hypertensive heart and chronic kidney disease with heart failure and stage 1 through stage 4 chronic kidney disease, or unspecified chronic kidney disease (principal); E43 Unspecified severe protein-calorie malnutrition; K76.7 Hepatorenal syndrome; I50.23 Acute on chronic systolic (congestive) heart failure; J90 Pleural effusion, not elsewhere classified; J98.11 Atelectasis; I82.4Z1 Acute embolism and thrombosis of unspecified deep veins of right distal lower extremity; I42.8 Other cardiomyopathies; E11.65 Type 2 diabetes mellitus with hyperglycemia; E11.40 Type 2 diabetes mellitus with diabetic neuropathy, unspecified; E11.319 Type 2 diabetes mellitus with unspecified diabetic retinopathy without macular edema; E11.22 Type 2 diabetes mellitus with diabetic chronic kidney disease; I07.1 Rheumatic tricuspid insufficiency; E04.1 Nontoxic single thyroid nodule; E78.5 Hyperlipidemia, unspecified; N18.30 Chronic kidney disease, stage 3 unspecified; I44.7 Left bundle-branch block, unspecified; Z90.13 Acquired absence of bilateral breasts and nipples; Z86.11 Personal history of tuberculosis; Z85.3 Personal history of malignant neoplasm of breast; Z79.82 Long term (current) use of aspirin; Z79.899 Other long term (current) drug therapy; Z68.21 Body mass index [BMI] 21.0-21.9, adult
CPT/HCPCS: 32555; 36600; 71045; 71250; 76942; 80048; 80053; 80202; 81001; 82465; 82805; 82945; 82962; 83615; 83735; 83880; 83986; 84157; 84484; 85025; 85610; 85730; 87015; 87040; 87075; 87077; 87081; 87086; 87101; 87186; 87205; 87206; 87252; 88305; 89051; 93005; 93306; 93970; 96372; 96374; 97161; 99285; G0378; J0690; J1100; J1170; J1644; J1940; J2270; J2370; J2405; J3010; J3370; J3490; J7030; J7050; J7060; Q9967; 36415-L1; 36415-TC; 87070; Z7610

== ENCOUNTER 2022-05-27 14:50 | Inpatient (IN) | payer MEDICARE, OTHER ==
[~2022-05-27] VITALS: Ht 154.9 cm; Wt 50.9 kg
[~2022-05-27 14:50] MED LIST changes: -CARV3 PO; +CARV6 PO; +CLIN300C58 PO; -FOLI-130 PO; +SACU1TAB PO
[2022-05-27] MEDS ORDERED: DEXTROSE 50%-WATER 25 GM/50 ML SYRINGE IVP PRN (15:30)
[2022-05-27] MEDS ORDERED: ACETAMINOPHEN 325 MG TABLET PO PRN (15:30)
[2022-05-27 15:38] LABS: COVID AG,FIA SOURCE NASAL SWAB
[2022-05-27 15:43] LABS: BASOPHILS % (AUTO) 1.2 % (0.0-2.0); EOSINOPHILS % (AUTO) 1.5 % (1.0-6.0); HEMATOCRIT 33.7 % (36-46); HEMOGLOBIN 10.5 g/dL (12.0-16.0); LYMPHOCYTES # (AUTO) 1.1 K/uL (1.0-4.8); LYMPHOCYTES % (AUTO) 18.8 % (22.0-44.0); MEAN CORPUSCULAR HEMOGLOBIN 24.5 pg (26.0-34.0); MEAN CORPUSCULAR VOLUME 79 fL (80-100); MONOCYTES # (AUTO) 0.5 K/uL (0.1-1.0); MONOCYTES % (AUTO) 8.7 % (2.0-9.0); NEUTROPHILS # (AUTO) 4.2 K/uL (1.8-7.7); NEUTROPHILS % (AUTO) 69.8 % (40.0-70.0); PLATELET COUNT (AUTO) 268 K/uL (150-450); RED BLOOD CELL COUNT(AUTO) 4.26 MIL/uL (4.00-5.20); RED CELL DISTRIBUTION WIDTH 23.5 % (11.5-14.5)
[2022-05-27 15:51] LABS: CALCIUM, TOTAL 8.3 mg/dL (8.8-10.5); CREATININE 1.52 mg/dL (0.60-1.30); POTASSIUM 4.6 mmol/L (3.5-5.1)
[2022-05-27 15:57] LABS: ALBUMIN 2.9 g/dL (3.4-5.0); BILIRUBIN,TOTAL 0.6 mg/dL (0.1-1.0); TOTAL PROTEIN, SERUM 7.3 g/dL (6.4-8.2)
[2022-05-27 15:59] LABS: INR 1.1 (0.9-1.1); PROTHROMBIN TIME 11.9 SEC (9.4-11.6)
[2022-05-27] MEDS: METOPROLOL SUCCINATE 25 MG ER TABLET PO SCH (16:33)
[2022-05-27 17:02] LABS: INFLUENZA TYPE A NEGATIVE FOR TYPE A (NEGATIVE); INFLUENZA TYPE B NEGATIVE FOR TYPE B (NEGATIVE)
[2022-05-27] MEDS: DOCUSATE SODIUM 100 MG CAPSULE PO SCH (21:25)
[2022-05-27] MEDS: INSULIN LISPRO 100 UNITS/ML SQ PRN ×2 (21:25→22:45)
[2022-05-27 21:26] LABS: GLUCOSE,POINT OF CARE 216 MG/DL (70-110)
[2022-05-27] MEDS: HEPARIN SODIUM,PORCINE 5,000 UNITS/ML VIAL SQ SCH (21:26)
[2022-05-27 21:47] LABS: APPEARANCE,URINE HAZY (CLEAR); BILIRUBIN,URINE NEGATIVE (NEGATIVE); GLUCOSE, URINE (UA) NEGATIVE (NEGATIVE); KETONES,URINE NEGATIVE (NEGATIVE); LEUKOCYTE ESTERASE ,URINE MODERATE (NEGATIVE); NITRATE,URINE NEGATIVE (NEGATIVE); OCCULT BLOOD,URINE TRACE (NEGATIVE); PH,URINE 5.5 (5.0-8.0); PROTEIN,URINE 300-600,SEE CONFIRM mg/dL (NEGATIVE); SPECIFIC GRAVITIY, URINE 1.009 (1.003-1.030); UROBILINOGEN,URINE <=1.0 mg/dL (<=1.0)
[2022-05-27 22:04] LABS: SULFOSALICYLIC ACID,URINE 4+ (Negative)
[2022-05-27 22:06] LABS: BACTERIA,URINE Many /HPF (None Seen); RBC,URINE 0-2 /HPF (0-2)
[2022-05-27 22:51] VITALS: BP 143/98
[2022-05-27] MEDS ORDERED: INFLUENZA VIRUS VACCINE QVS 2022-23 (6MO+)/PF 60 MCG/0.5 ML SYRINGE IM. ONE (23:45)
[2022-05-27] MEDS ORDERED: PNEUMOCOCCAL VACCINE POLYVALENT 0.5 ML VIAL [PPSV23] IM. ONE (23:45)
[2022-05-28 03:32] LABS: GLUCOMETER DEV NAME(LOC) 5N.1C; GLUCOSE,POINT OF CARE 191 MG/DL (70-110)
[2022-05-28 04:10] VITALS: BP 141/84
[2022-05-28 07:37] VITALS: BP 144/87
[2022-05-28] MEDS: FAMOTIDINE 20 MG TABLET PO SCH (08:35)
[2022-05-28] MEDS: DOCUSATE SODIUM 100 MG CAPSULE PO SCH ×2 (08:35→20:22)
[2022-05-28] MEDS: ATORVASTATIN CALCIUM 20 MG TABLET PO SCH (08:35)
[2022-05-28] MEDS: HEPARIN SODIUM,PORCINE 5,000 UNITS/ML VIAL SQ SCH ×2 (08:35→20:22)
[2022-05-28] MEDS: ASPIRIN 81 MG CHEWABLE TABLET PO SCH (08:35)
[2022-05-28] MEDS: METOPROLOL SUCCINATE 25 MG ER TABLET PO SCH (08:35)
[2022-05-28] MEDS: OxyCODONE HCL/ACETAMINOPHEN 5-325 MG TABLET PO PRN ×3 (08:36→17:19)
[2022-05-28 09:21] LABS: GLUCOMETER DEV NAME(LOC) 5S.2B; GLUCOSE,POINT OF CARE 124 MG/DL (70-110)
[2022-05-28 11:59] VITALS: BP 130/75
[2022-05-28 12:06] LABS: GLUCOMETER DEV NAME(LOC) 5S.2B; GLUCOSE,POINT OF CARE 137 MG/DL (70-110)
[2022-05-28 15:58] VITALS: BP 133/79
[2022-05-28] MEDS: FUROSEMIDE 20 MG/2 ML VIAL IVP SCH ×2 (16:49→20:22)
[2022-05-28] MEDS: INSULIN LISPRO 100 UNITS/ML SQ PRN ×2 (16:53→20:23)
[2022-05-28 19:11] LABS: GLUCOMETER DEV NAME(LOC) 5S.2B; GLUCOSE,POINT OF CARE 217 MG/DL (70-110)
[2022-05-28] MEDS: ONDANSETRON HCL 4 MG/2 ML VIAL IVP PRN (19:49)
[2022-05-28] MEDS ORDERED: SODIUM CHLORIDE 0.9% 500 ML IV ONE (19:52)
[2022-05-28 20:18] VITALS: BP 120/67
[2022-05-28] MEDS: CefTRIAXone 1 GM/DEXTROSE 50 ML IV SCH (20:22)
[2022-05-29 00:21] VITALS: BP 129/71
[2022-05-29 01:51] LABS: GLUCOMETER DEV NAME(LOC) 5S.1B; GLUCOSE,POINT OF CARE 163 MG/DL (70-110)
[2022-05-29 05:45] VITALS: BP 139/63
[2022-05-29 07:42] VITALS: BP 155/77
[2022-05-29] MEDS: DOCUSATE SODIUM 100 MG CAPSULE PO SCH ×2 (08:50→21:00)
[2022-05-29] MEDS: ASPIRIN 81 MG CHEWABLE TABLET PO SCH (08:50)
[2022-05-29] MEDS: FAMOTIDINE 20 MG TABLET PO SCH (08:50)
[2022-05-29] MEDS: OxyCODONE HCL/ACETAMINOPHEN 5-325 MG TABLET PO PRN ×3 (08:50→17:50)
[2022-05-29] MEDS: METOPROLOL SUCCINATE 25 MG ER TABLET PO SCH (08:50)
[2022-05-29] MEDS: FUROSEMIDE 20 MG/2 ML VIAL IVP SCH (08:51)
[2022-05-29] MEDS: HEPARIN SODIUM,PORCINE 5,000 UNITS/ML VIAL SQ SCH ×2 (08:51→21:51)
[2022-05-29] MEDS: ATORVASTATIN CALCIUM 20 MG TABLET PO SCH (08:51)
[2022-05-29] MEDS: LOSARTAN POTASSIUM 25 MG TABLET PO SCH (08:51)
[2022-05-29] MEDS: ONDANSETRON HCL 4 MG/2 ML VIAL IVP PRN (08:52)
[2022-05-29 10:59] VITALS: BP 123/68
[2022-05-29 11:41] LABS: GLUCOMETER DEV NAME(LOC) 5S.2B; GLUCOSE,POINT OF CARE 78 MG/DL (70-110)
[2022-05-29] MEDS: INSULIN LISPRO 100 UNITS/ML SQ PRN ×2 (12:51→21:52)
[2022-05-29 15:08] VITALS: BP 130/56
[2022-05-29 17:26] LABS: GLUCOMETER DEV NAME(LOC) 5S.1B; GLUCOSE,POINT OF CARE 169 MG/DL (70-110)
[2022-05-29 21:01] VITALS: BP 127/68
[2022-05-29] MEDS: FUROSEMIDE 20 MG TABLET PO SCH (21:51)
[2022-05-29] MEDS: CefTRIAXone 1 GM/DEXTROSE 50 ML IV SCH (21:51)
[2022-05-29 22:21] LABS: GLUCOMETER DEV NAME(LOC) 5S.1B; GLUCOSE,POINT OF CARE 121 MG/DL (70-110)
[2022-05-30 00:08] VITALS: BP 123/61
[2022-05-30 05:04] VITALS: BP 130/67
[2022-05-30 06:56] LABS: BASOPHILS % (AUTO) 1.3 % (0.0-2.0); EOSINOPHILS % (AUTO) 4.3 % (1.0-6.0); HEMOGLOBIN 10.2 g/dL (12.0-16.0); LYMPHOCYTES # (AUTO) 1.1 K/uL (1.0-4.8); LYMPHOCYTES % (AUTO) 22.9 % (22.0-44.0); MEAN CORPUSCULAR HEMOGLOBIN 24.9 pg (26.0-34.0); MEAN CORPUSCULAR HGB CONC 31.8 G/dL (31.0-37.0); MEAN CORPUSCULAR VOLUME 78 fL (80-100); MONOCYTES # (AUTO) 0.6 K/uL (0.1-1.0); MONOCYTES % (AUTO) 12.3 % (2.0-9.0); NEUTROPHILS # (AUTO) 2.8 K/uL (1.8-7.7); NEUTROPHILS % (AUTO) 59.2 % (40.0-70.0); PLATELET COUNT (AUTO) 285 K/uL (150-450); RED CELL DISTRIBUTION WIDTH 22.2 % (11.5-14.5)
[2022-05-30 07:03] LABS: ALBUMIN 2.3 g/dL (3.4-5.0); BILIRUBIN,TOTAL 0.2 mg/dL (0.1-1.0); CALCIUM, TOTAL 7.8 mg/dL (8.8-10.5); POTASSIUM 4.9 mmol/L (3.5-5.1)
[2022-05-30 07:54] VITALS: BP 149/58
[2022-05-30] MEDS: FAMOTIDINE 20 MG TABLET PO SCH (08:22)
[2022-05-30] MEDS: ASPIRIN 81 MG CHEWABLE TABLET PO SCH (08:22)
[2022-05-30] MEDS: HEPARIN SODIUM,PORCINE 5,000 UNITS/ML VIAL SQ SCH (08:24)
[2022-05-30] MEDS: METOPROLOL SUCCINATE 25 MG ER TABLET PO SCH (08:28)
[2022-05-30] MEDS: ATORVASTATIN CALCIUM 20 MG TABLET PO SCH (08:28)
[2022-05-30] MEDS: LOSARTAN POTASSIUM 25 MG TABLET PO SCH (08:29)
[2022-05-30] MEDS: DOCUSATE SODIUM 100 MG CAPSULE PO SCH (08:31)
[2022-05-30 11:24] VITALS: BP 135/68
[2022-05-30] MEDS: INSULIN LISPRO 100 UNITS/ML SQ PRN (12:44)
[2022-05-30] MEDS: FUROSEMIDE 20 MG TABLET PO SCH (13:33)
[2022-05-30 15:11] VITALS: BP 131/65
[2022-05-30] MEDS ORDERED: FURO-151 PO ×3 (18:15→18:23)
[2022-05-30] MEDS ORDERED: CEPH-558 PO ×2 (18:16→18:25)
[2022-05-30 20:16] LABS: GLUCOMETER DEV NAME(LOC) 5S.2B; GLUCOSE,POINT OF CARE 128 MG/DL (70-110)
[2022-05-30 20:16] LABS: GLUCOMETER DEV NAME(LOC) 5S.2B; GLUCOSE,POINT OF CARE 150 MG/DL (70-110)
== END 2022-05-30 19:00 | disposition home or self-care (01) | DRG 291 ==
LOC: EMS 14:51 → AHU 17:17 → 5S 20:24
PROVIDERS: ADMIT Internal Medicine; ATTEND Internal Medicine
DX: I13.0 Hypertensive heart and chronic kidney disease with heart failure and stage 1 through stage 4 chronic kidney disease, or unspecified chronic kidney disease (principal); E43 Unspecified severe protein-calorie malnutrition; I50.23 Acute on chronic systolic (congestive) heart failure; N39.0 Urinary tract infection, site not specified; N18.30 Chronic kidney disease, stage 3 unspecified; E11.22 Type 2 diabetes mellitus with diabetic chronic kidney disease; I44.7 Left bundle-branch block, unspecified; I42.8 Other cardiomyopathies; Z20.822 Contact with and (suspected) exposure to COVID-19; E11.65 Type 2 diabetes mellitus with hyperglycemia; E04.9 Nontoxic goiter, unspecified; E78.5 Hyperlipidemia, unspecified; Z79.82 Long term (current) use of aspirin; Z79.899 Other long term (current) drug therapy; Z90.13 Acquired absence of bilateral breasts and nipples; Z85.3 Personal history of malignant neoplasm of breast; Z68.21 Body mass index [BMI] 21.0-21.9, adult; R22.1 Localized swelling, mass and lump, neck
CPT/HCPCS: 71045; 80053; 81001; 81002; 82962; 83880; 84484; 85025; 85610; 85730; 87086; 87186; 87804; 93005; 99285; J0696; J1644; J1815; J1940; J2405; J7040; 36415-L1; 36415-TC